=== PATIENT | female | born 1995 | race Caucasian/White ===

== ENCOUNTER → 2018-12-18 | Outpatient (CLI) | payer MEDICAID ==
--- NOTE | 2018-12-18 12:46 | Diagnostic Imaging Report ---
INDICATION: survey. TECHNIQUE: Multiple real-time grayscale images were obtained over the gravid uterus. COMPARISON: None FINDINGS: There is a single live fetus in a breech presentation. heart rate was recorded at 147 beats per minute. Placenta is posterior. Amniotic fluid volume is normal. Cervical length is 3.6 cm. survey demonstrates kidneys, bladder and stomach to be unremarkable. brain is unremarkable. There is a four chambered heart. There is a three-vessel cord with normal insertion. spine is unremarkable. Biometrical measurements are as follows: Biparietal 4.59 cm, age 20 weeks 0 days. Head circumference 17.59 cm, age 20 weeks 1 days. Abdominal circumference 14.90 cm, age 20 weeks 2 days. Femur length 3.19 cm, age 20 weeks 0 days. Sonographic estimate age: 20 weeks 1 days. Sonographic estimated date of delivery: 05/06/2019. Estimated Weight: 329 gm (+/- 48 gm). LMP percentile: 40%. heart rate: 147 beats per minute. number: 1 of 1. IMPRESSION: Single live IUP 20 weeks one day gestational age. The estimated date of confinement sonographically is 05/06/2019. Dictated by: Dictated on workstation # [id number]
== END ==
LOC: RAD 11:24
PROVIDERS: ATTEND Obstetrics & Gynecology
DX: Z36.89 Encounter for other specified antenatal screening (principal); Z3A.20 20 weeks gestation of pregnancy
CPT/HCPCS: 76805

== ENCOUNTER 2019-04-05 22:18 | Outpatient (CLI) | payer MEDICAID ==
[~2019-04-05] VITALS: Ht 157.5 cm; Wt 81.6 kg
[~2019-04-05 22:18] MED LIST: ACET-789 PO; CEPH-507 PO; PREN1TAB19 PO
--- NOTE | 2019-04-05 22:25 | NUR ---
GABRIELLA VILLAVICENCIO presented to unit via AMBULATION from HOME/ED, accompanied by SO, with c/o CONTRACTIONS. GABRIELLA VILLAVICENCIO weighed, gowned, voided, and to bed. EFHM and TOCO applied, VS taken. GABRIELLA VILLAVICENCIO oriented to bed controls, call light, TV, heat, and A/C controls.
[2019-04-05 22:38] VITALS: BP 123/68
[2019-04-05 22:48] LABS: BILIRUBIN,URINE NEGATIVE (NEGATIVE); CLARITY,URINE CLEAR; COLOR,URINE YELLOW; GLUCOSE, URINE (UA) 1+ (NEGATIVE); KETONES,URINE NEGATIVE (NEGATIVE); LEUKOCYTE ESTERASE ,URINE 1+ (NEGATIVE); NITRITE,URINE NEGATIVE (NEGATIVE); PH,URINE 6 (5-9); PROTEIN,URINE NEGATIVE (NEGATIVE); UROBILINOGEN,URINE NORMAL (NORMAL)
[2019-04-05 22:57] LABS: BACTERIA,URINE TRACE /HPF; RBC,URINE 0-2 /HPF
[2019-04-05] MEDS ORDERED: CEPH-507 PO (23:12)
[2019-04-05] MEDS ORDERED: CEPHALEXIN 250 MG (KEFLEX) CAP PO ONE (23:15)
--- NOTE | 2019-04-05 23:19 | NUR ---
Keflex 500 mg PO given w/ice water. D/C instructions given & explained, pt. verbalized understanding & signed, copy of D/C instructions to pt. Rx called into [facility] per pt's request. 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
--- NOTE | 2019-04-06 10:43 | Physician Query-Final Dx ---
WILBER YEN 04/06/19 1043: Clinic Account Progress/Dx Physician Query: Please give diagnosis Please include weeks gestation Date of Service Apr 05, 2019 at 22:18 LIAN FELIZ DO 04/07/19 0751: Clinic Account Progress/Dx DIAGNOSIS: Diagnosis 32 week IUP Uterine cramps UTI WILBER YEN Apr 06, 2019 10:43 LIAN FELIZ DO Apr 07, 2019 07:51
== END 2019-04-05 23:19 | disposition home or self-care (01) ==
LOC: LDRP 22:18 → WSo 22:18
PROVIDERS: ATTEND Obstetrics & Gynecology
DX: O23.43 Unspecified infection of urinary tract in pregnancy, third trimester (principal); Z3A.32 32 weeks gestation of pregnancy
CPT/HCPCS: 81000; 87088; 99213

== ENCOUNTER 2019-04-24 14:49 | Outpatient (CLI) | payer MEDICAID ==
[~2019-04-24] VITALS: Ht 157.5 cm; Wt 85.4 kg
--- NOTE | 2019-04-24 14:45 | NUR ---
GABRIELLA VILLAVICENCIO presented to unit via ambulation from home, accompanied by S,o,, with c/o losing mucus plug. GABRIELLA VILLAVICENCIO weighed, gowned, voided, and to bed. EFHM and TOCO applied, VS taken. GABRIELLA VILLAVICENCIO oriented to bed controls, call light, TV, heat, and A/C controls.
[2019-04-24 15:00] VITALS: BP 126/78
--- NOTE | 2019-04-24 15:41 | NUR ---
Dr. Barber called and notified of pt arrival. Pt is pt of Dr. Arce, , due 05/06 (38.2 weeks), presenting with c/o losing mucous plug. notified of ctx pattern, FHR status, SVE, urine dipstick, nitrazine. Orders for discharge rec'd.
--- NOTE | 2019-04-24 15:55 | NUR ---
Discharge instructions explained to pt with copy provided to pt. Pt verbalizes understanding of teaching, denies needs or concerns. Signs to verify understanding. Pt ambulates off unit accompanied by S.O. to private vehicle along with all personal belongings. No s//s of distress noted.
--- NOTE | 2019-04-25 08:00 | Physician Query-Final Dx ---
WILBER YEN 04/25/19 0800: Clinic Account Progress/Dx Physician Query: Please give diagnosis Please include # weeks gestation Date of Service Apr 24, 2019 at 14:49 LIAN FELIZ DO 04/27/19 0800: Clinic Account Progress/Dx DIAGNOSIS: Diagnosis 37 week iup irregular contractions WILBER YEN Apr 25, 2019 08:00 LIAN FELIZ DO Apr 27, 2019 08:00
== END 2019-04-24 15:55 | disposition home or self-care (01) ==
LOC: WSo 14:49 → LDRP 14:50 → WSo 15:55
PROVIDERS: ATTEND Obstetrics & Gynecology
DX: O26.893 Other specified pregnancy related conditions, third trimester (principal); Z3A.38 38 weeks gestation of pregnancy
CPT/HCPCS: 99214

== ENCOUNTER 2019-04-29 19:47 | Inpatient (IN) | payer MEDICAID ==
[2019-04-29] VITALS (8 sets, daily range): BP systolic 111–129; BP diastolic 66–79
[~2019-04-29] VITALS: Ht 160 cm; Wt 86.0 kg
--- NOTE | 2019-04-29 19:43 | NUR ---
GABRIELLA VILLAVICENCIO presented to unit via ambulation from home, accompanied by s.o. and mother for induction of labor. GABRIELLA VILLAVICENCIO weighed, gowned, voided, and to bed. EFHM and TOCO applied, VS taken. GABRIELLA VILLAVICENCIO oriented to bed controls, call light, TV, heat, and A/C controls.
[2019-04-29] MEDS ORDERED: D5 LR IV SOLUTION 1,000 ML IV ONE (19:59)
[2019-04-29] MEDS ORDERED: ceFAZolin 2 GM IV Premixed 50 ML IV SCH (20:28)
[2019-04-29] MEDS ORDERED: MINERAL OIL CONCENTRATE 99.9% 15 ML UDC TOP PRN (20:30)
[2019-04-29 20:45] LABS: BASOPHILS % (AUTO) 0 % (0-10); EOSINOPHILS # (AUTO) 0.2 10^3/uL (0.0-0.3); EOSINOPHILS % (AUTO) 1 % (0-10); HEMATOCRIT 38 % (35-52); HEMOGLOBIN 12.3 G/DL (11.5-16.0); LYMPHOCYTES # (AUTO) 3.1 X 10^3 (1.0-4.0); LYMPHOCYTES % (AUTO) 19 % (12-44); MEAN CORPUSCULAR HEMOGLOBIN 27 PG (25-34); MEAN CORPUSCULAR HGB CONC 33 G/DL (32-36); MEAN CORPUSCULAR VOLUME 82 FL (80-99); MEAN PLATELET VOLUME 8.8 FL (7.4-10.4); MONOCYTES # (AUTO) 1.3 X 10^3 (0.0-1.0); MONOCYTES % (AUTO) 8 % (0-12); NEUTROPHILS # (AUTO) 11.7 X 10^3 (1.8-7.8); NEUTROPHILS % (AUTO) 72 % (42-75); PLATELET COUNT 346 10^3/uL (130-400); RED CELL DISTRIBUTION WIDTH 16.2 % (10.0-14.5); WHITE BLOOD COUNT 16.3 10^3/uL (4.3-11.0)
[2019-04-29] MEDS ORDERED: MISOPROSTOL 100 MCG (CYTOTEC) TAB ONE (20:52)
[2019-04-29] MEDS ORDERED: ceFAZolin 2 GM/50 ML NS 50 ML ONE (20:52)
[2019-04-29] MEDS: D5 LR IV SOLUTION 1,000 ML IV SCH (20:55)
[2019-04-29] MEDS ORDERED: MISOPROSTOL 100 MCG (CYTOTEC) TAB PO ONE (21:00)
[2019-04-29 21:11] LABS: BILIRUBIN,URINE NEGATIVE (NEGATIVE); CLARITY,URINE CLEAR; COLOR,URINE YELLOW; GLUCOSE, URINE (UA) NEGATIVE (NEGATIVE); KETONES,URINE NEGATIVE (NEGATIVE); LEUKOCYTE ESTERASE ,URINE NEGATIVE (NEGATIVE); NITRITE,URINE NEGATIVE (NEGATIVE); PH,URINE 6.5 (5-9); PROTEIN,URINE NEGATIVE (NEGATIVE); UROBILINOGEN,URINE NORMAL (NORMAL)
[2019-04-29 21:28] LABS: BACTERIA,URINE FEW /HPF; RBC,URINE RARE /HPF; SQUAMOUS EPITHELIAL CELL,UR 0-2 /HPF
[2019-04-30] VITALS (75 sets, daily range): BP systolic 108–153; BP diastolic 57–93
[2019-04-30] MEDS: MISOPROSTOL 100 MCG (CYTOTEC) TAB PO SCH ×3 (00:58→09:13)
[2019-04-30] MEDS: D5 LR IV SOLUTION 1,000 ML IV SCH ×3 (03:32→18:41)
[2019-04-30] MEDS: ceFAZolin INJECTION 1,000 MG in WATER (STERILE) FOR INJECTION 10 ML IV SCH ×2 (05:11→13:17)
[2019-04-30] MEDS ORDERED: morphine INJ 10 MG/ML 1ML (SYR OR VIAL) ONE (05:14)
[2019-04-30] MEDS ORDERED: morphine INJ 10 MG/ML 1ML (SYR OR VIAL) IVP ONE (05:15)
[2019-04-30] MEDS: CATHETER FLUSH 10 ML SYR IV SCH ×3 (08:23→14:00)
[2019-04-30] MEDS ORDERED: SUFENTA 0.6MCG/ML BUPIVA 0.125 100 ML ONE (10:01)
[2019-04-30] MEDS ORDERED: BUPIVACAINE 0.25% 30 ML (SENSORCAINE) VIAL ONE (10:21)
[2019-04-30] MEDS ORDERED: fentaNYL INJECTION 100 MCG/2 ML AMP ONE (10:22)
[2019-04-30] MEDS: EPIDURAL (SUFENTA 0.6MCG/ML BUPIVA 0.125%) 100 ML BAG EPI PRN ×2 (10:42→18:43)
[2019-04-30] MEDS ORDERED: LACTATED RINGERS 1,000 ML IV SCH (10:58)
[2019-04-30] MEDS ORDERED: ONDANSETRON 4 MG/2 ML (SDV) Z0FRAN IV PRN (11:00)
[2019-04-30] MEDS ORDERED: diphenhydrAMINE 50 MG/ML INJ (BENADRYL) IV PRN (11:00)
[2019-04-30] MEDS ORDERED: NALOXONE 0.4 MG/ML 1 ML (NARCAN) VIAL IV PRN ×2 (11:00)
[2019-04-30] MEDS ORDERED: METOCLOPRAMIDE INJ 10 MG/2 ML (REGLAN) IV PRN (11:00)
[2019-04-30] MEDS ORDERED: OXYTOCIN/NORMAL SALINE 500 ML IV SCH ×2 (12:54→21:48)
[2019-04-30] MEDS ORDERED: LACTATED RINGERS 500 ML IV ONE (16:15)
[2019-04-30] MEDS ORDERED: LIDOCAINE/EPI 2% 1:200,00 (XYLOCAINE) 10 ML VIAL ONE (19:30)
--- NOTE | 2019-04-30 21:53 | OB Labor & Delivery Record ---
Vag Delivery Note Vag Delivery Note Date of Delivery: 04/30/19 Preoperative Diagnosis: Sherice Burnett is a 23 /Para 1/0 ,Gestational Age 39 1/7 weeks, social induction, GBS + Postoperative Diagnosis: Same Surgeon: VERONICA DELEON Wagon Drill Operator: Nina Candelario, MS III Anesthesia: epidural Delivery Type: vaginal Findings: Viable female infant, apgars [], weight 7#7ounces Lacerations: right vaginal wall laceration Intact placenta with 3 vessel cord. No nuchal cord, body cord or shoulder dystocia Estimated Blood Loss: 400 ml Complications: None Condition: Stable Description of Procedure: The patient is a 23 year old female who presented social induction. She was admitted and informed consent was obtained. Her labor course was remarkable for Misoprostel oral, Ancef for GBS prophylaxis, AROM and augmentation. She progressed to complete dilatation and began to push. She was then set up for delivery. The infant's head was delivered atraumatically in the DELTA position. The shoulders and remainder of the 's body were then delivered without difficulty. Upon delivery, the head was held below the level of the perineum and the mouth and nares were bulb suctioned. The cord was doubly clamped and cut and the was handed off to the pediatric staff. An intact placenta with 3-vessel cord delivered via Juanita and there was found to be minimal bleeding.~ Vigorous fundal massage was performed and the fundus was found to be firm. IV oxytocin was given. Examination of the vagina and perineum revealed a right vaginal wall laceration repaired in the usual fashion with 3-0 vicryl suture. Following the repair, sponge, instrument and needle counts were correct. Mom and baby were both in stable condition in the labor suite. Vitals - Labs Vital Signs - I&O Vital Signs Date Time Temp Pulse Resp B/P (MAP) Pulse Ox O2 Delivery O2 Flow Rate FiO2 04/30/19 20:00 95 16 123/77 (92) Room Air 04/30/19 19:45 100 16 137/71 (93) Room Air 04/30/19 19:30 95 16 131/89 (103) Room Air 04/30/19 19:15 36.6 95 16 128/90 (103) 95 Room Air 04/30/19 19:00 94 16 130/75 (93) Room Air 04/30/19 18:45 93 16 135/73 (93) Room Air 04/30/19 18:30 90 16 137/70 (92) Room Air 04/30/19 18:15 36.7 91 16 137/67 (90) 99 Room Air 04/30/19 18:00 93 16 134/74 (94) Room Air 04/30/19 17:45 103 16 153/70 (97) Room Air 04/30/19 17:30 92 16 130/80 (97) Room Air 04/30/19 17:15 87 16 128/74 (92) Room Air 04/30/19 17:00 36.6 88 16 125/63 (83) Room Air 04/30/19 16:45 89 16 130/66 (87) Room Air 04/30/19 16:30 88 16 129/70 (89) Room Air 04/30/19 16:15 88 16 128/65 (86) Room Air 04/30/19 16:00 36.5 88 16 123/73 (90) Room Air 04/30/19 15:45 84 16 117/69 (85) Non Rebreather 15.00 04/30/19 15:30 80 16 124/67 (86) Non Rebreather 15.00 04/30/19 15:15 84 16 121/87 (98) Room Air 04/30/19 15:00 71 16 121/70 (87) Room Air 04/30/19 14:45 77 16 118/70 (86) Room Air 04/30/19 14:30 72 16 114/65 (81) Room Air 04/30/19 14:15 83 16 111/61 (78) Room Air 04/30/19 14:00 36.3 76 16 112/63 (79) Room Air 04/30/19 13:45 79 16 113/69 (84) Room Air 04/30/19 13:30 81 16 113/76 (88) Room Air 04/30/19 13:15 83 16 124/74 (91) Room Air 04/30/19 13:00 81 16 121/69 (86) Room Air 04/30/19 12:55 80 18 99 Room Air 04/30/19 12:45 Room Air 04/30/19 12:37 91 18 116/61 (79) 98 Room Air 04/30/19 12:30 Room Air 04/30/19 12:20 76 18 115/63 (80) 99 Room Air 04/30/19 12:15 18 99 Room Air 04/30/19 12:05 80 18 118/73 (88) 98 Room Air 04/30/19 12:00 36.5 93 18 111/68 (82) 99 Room Air 04/30/19 11:36 90 18 121/77 (92) 98 Room Air 04/30/19 11:25 87 18 120/67 (84) 98 Room Air 04/30/19 11:20 87 18 120/67 (84) 98 Room Air 04/30/19 11:15 88 18 119/63 (81) 99 Room Air 04/30/19 11:10 89 18 123/67 (85) 99 Room Air 04/30/19 11:05 90 18 122/70 (87) 97 Room Air 04/30/19 11:00 96 18 122/70 (87) 98 Room Air 04/30/19 10:55 90 18 122/71 (88) 97 Room Air 04/30/19 10:50 95 18 119/71 (87) 98 Room Air 04/30/19 10:45 97 20 129/77 (94) 97 Room Air 04/30/19 10:40 99 20 134/80 (98) 98 Room Air 04/30/19 10:31 94 18 124/79 (94) 100 Room Air 04/30/19 09:36 36.6 04/30/19 09:21 86 18 121/67 (85) Room Air 04/30/19 08:21 92 18 132/87 (102) Room Air 04/30/19 07:21 36.2 80 18 119/77 (91) 100 Room Air 04/30/19 06:30 85 18 119/76 (90) Room Air 04/30/19 06:00 83 18 122/77 (92) Room Air 04/30/19 05:30 36.6 85 18 124/80 (95) Room Air 04/30/19 04:30 89 18 110/65 (80) Room Air 04/30/19 04:00 83 18 121/74 (90) Room Air 04/30/19 03:30 87 18 126/75 (92) Room Air 04/30/19 03:00 82 18 116/74 (88) Room Air 04/30/19 02:30 87 18 115/69 (84) Room Air 04/30/19 02:00 90 18 108/68 (81) Room Air 04/30/19 01:30 36.5 94 18 119/73 (88) Room Air 04/30/19 01:00 86 18 120/68 (85) Room Air 04/30/19 00:30 94 18 124/71 (88) Room Air 04/30/19 00:00 100 18 118/71 (87) Room Air 04/29/19 23:30 89 18 122/76 (91) Room Air 04/29/19 23:00 94 18 119/66 (83) Room Air 04/29/19 22:30 90 18 111/69 (83) Room Air 04/29/19 22:00 86 18 114/72 (86) Room Air I & O 04/30/19 07:00 Intake Total 10 ml Balance 10 ml VERONICA DELEON DO Apr 30, 2019 21:53
[2019-04-30] MEDS ORDERED: WITCH HAZEL(TUCKS) 40 EA JAR TOP PRN (22:00)
[2019-04-30] MEDS ORDERED: MEASLES,MUMPS,RUBELLA 1 EA INJ SQ ONE (22:00)
[2019-04-30] MEDS ORDERED: CATHETER FLUSH 10 ML SYR IV SCH (22:00)
[2019-04-30] MEDS ORDERED: TETANUS,DIPTH,PERTUSS P/F (BOOSTRIX) 0.5 ML VIAL IM ONE (22:00)
[2019-04-30] MEDS ORDERED: BENZOCAINE/MENTHOL (DERMOPLAST) 56 ML CAN TP PRN (22:00)
[2019-05-01] VITALS: BP 117/66
[2019-05-01] MEDS: IBUPROFEN 600 MG (MOTRIN) TAB PO SCH ×4 (00:15→22:47)
[2019-05-01] MEDS: ACETAMINOPHEN 500 MG TAB (TYLENOL) PO SCH ×3 (00:15→16:31)
--- NOTE | 2019-05-01 00:30 | NUR ---
ff 1 below umbilicus. light rubra noted. along with labia major swelling pericare completed. gown changed. pt assisted to w'c and taken down to 309. pt orientated to room. denies urge to void at this time. pt assisted into bed. plan of care discussed. pt denies any needs at this time. will continue to monitor.
--- NOTE | 2019-05-01 02:30 | NUR ---
Pt assisted to the bathroom. positive void. pericare completed. pad changed. rubra moderate. no clots noted. pt assisted back to bed. pt denies any needs at this time. will continue to monitor.
[2019-05-01 04:15] VITALS: BP 122/61
[2019-05-01 05:11] LABS: BASOPHILS % (AUTO) 0 % (0-10); EOSINOPHILS # (AUTO) 0.2 10^3/uL (0.0-0.3); EOSINOPHILS % (AUTO) 1 % (0-10); HEMATOCRIT 33 % (35-52); HEMOGLOBIN 10.7 G/DL (11.5-16.0); LYMPHOCYTES # (AUTO) 2.5 X 10^3 (1.0-4.0); LYMPHOCYTES % (AUTO) 11 % (12-44); MEAN CORPUSCULAR HEMOGLOBIN 27 PG (25-34); MEAN CORPUSCULAR HGB CONC 32 G/DL (32-36); MEAN CORPUSCULAR VOLUME 83 FL (80-99); MEAN PLATELET VOLUME 8.5 FL (7.4-10.4); MONOCYTES # (AUTO) 1.8 X 10^3 (0.0-1.0); MONOCYTES % (AUTO) 8 % (0-12); NEUTROPHILS # (AUTO) 18.1 X 10^3 (1.8-7.8); NEUTROPHILS % (AUTO) 80 % (42-75); PLATELET COUNT 287 10^3/uL (130-400); RED CELL DISTRIBUTION WIDTH 16.1 % (10.0-14.5); WHITE BLOOD COUNT 22.5 10^3/uL (4.3-11.0)
[2019-05-01 06:33] LABS: LYMPHOCYTES % (MANUAL) 8 %; MONOCYTES % (MANUAL) 6 %; NEUTROPHILS % (MANUAL) 86 %
[2019-05-01 08:33] VITALS: BP 120/79
[2019-05-01] MEDS: DOCUSATE SODIUM 100 MG (COLACE) CAP PO SCH ×2 (08:34→22:47)
[2019-05-01] MEDS: PRENATAL VITAMIN 1 EA TAB PO SCH (08:34)
[2019-05-01] MEDS: FERROUS SULF 325 MG (IRON) TAB PO SCH (08:35)
--- NOTE | 2019-05-01 09:53 | Postpartum Progress Note ---
Note Note Day # 1 s/p Subjective: Patient is without complaints. Ambulating, voiding. Tolerating a regular diet w ithout nausea or vomiting. Normal lochia. Pain is well controlled with oral pain medications. breast feeding. Objective: 04/30/19 04/30/19 04/30/19 04/30/19 22:00 22:15 22:30 23:00 Temp 36.7 36.7 Pulse 98 84 84 102 Resp 16 16 16 16 B/P (MAP) 122/80 (94) 123/74 (90) 118/81 (93) 117/64 (81) O2 Delivery Room Air Room Air Room Air Room Air 04/30/19 04/30/19 04/30/19 05/01/19 23:15 23:30 23:45 00:00 Temp 36.6 Pulse 110 100 105 100 Resp 16 16 16 16 B/P (MAP) 115/57 (76) 138/78 (98) 131/65 (87) 117/66 (83) O2 Delivery Room Air Room Air Room Air Room Air 05/01/19 05/01/19 04:15 08:33 Temp 36.5 36.6 Pulse 98 89 Resp 16 16 B/P (MAP) 122/61 (81) 120/79 (93) Pulse Ox 97 O2 Delivery Room Air Room Air 05/01/19 00:00 Intake Total 1010 ml Output Total 1200 ml Balance -190 ml Laboratory Tests Test 05/01/19 05:02 Range/Units White Blood Count 22.5 H 4.3-11.0 10^3/uL Red Blood Count 3.98 L 4.35-5.85 10^6/uL Hemoglobin 10.7 L 11.5-16.0 G/DL Hematocrit 33 L 35-52 % Mean Corpuscular Volume 83 80-99 FL Mean Corpuscular Hemoglobin 27 25-34 PG Mean Corpuscular Hemoglobin Concent 32 32-36 G/DL Red Cell Distribution Width 16.1 H 10.0-14.5 % Platelet Count 287 130-400 10^3/uL Mean Platelet Volume 8.5 7.4-10.4 FL Neutrophils (%) (Auto) 80 H 42-75 % Lymphocytes (%) (Auto) 11 L 12-44 % Monocytes (%) (Auto) 8 0-12 % Eosinophils (%) (Auto) 1 0-10 % Basophils (%) (Auto) 0 0-10 % Neutrophils # (Auto) 18.1 H 1.8-7.8 X 10^3 Lymphocytes # (Auto) 2.5 1.0-4.0 X 10^3 Monocytes # (Auto) 1.8 H 0.0-1.0 X 10^3 Eosinophils # (Auto) 0.2 0.0-0.3 10^3/uL Basophils # (Auto) 0.0 0.0-0.1 10^3/uL Neutrophils % (Manual) 86 % Lymphocytes % (Manual) 8 % Monocytes % (Manual) 6 % Physical Exam: General - Alert and oriented, no apparent distress Abdomen - Soft, appropriately tender to palpation, non-distended, fundus firm at umbilicus Extremities - no edema, negative Андрей's bilaterally Assessment: 1. post- day # 1, status post spontaneous vaginal delivery. Recovering well, hemodynamically stable Plan: Routine care. Encourage breast feeding. Encourage ambulation. Ferrous sulfate supplementation. Plan for discharge tomorrow Vitals - Labs Vital Signs - I&O Vital Signs Date Time Temp Pulse Resp B/P (MAP) Pulse Ox O2 Delivery O2 Flow Rate FiO2 05/01/19 08:33 36.6 89 16 120/79 (93) 97 Room Air 05/01/19 04:15 36.5 98 16 122/61 (81) Room Air 05/01/19 00:00 36.6 100 16 117/66 (83) Room Air 04/30/19 23:45 105 16 131/65 (87) Room Air 04/30/19 23:30 100 16 138/78 (98) Room Air 04/30/19 23:15 110 16 115/57 (76) Room Air 04/30/19 23:00 36.7 102 16 117/64 (81) Room Air 04/30/19 22:30 36.7 84 16 118/81 (93) Room Air 04/30/19 22:15 84 16 123/74 (90) Room Air 04/30/19 22:00 98 16 122/80 (94) Room Air 04/30/19 21:45 101 16 116/82 (93) Room Air 04/30/19 21:30 96 16 133/79 (97) Room Air 04/30/19 21:15 104 16 129/80 (96) Room Air 04/30/19 21:00 98 16 134/84 (101) Room Air 04/30/19 20:45 100 16 141/78 (99) Room Air 04/30/19 20:30 105 16 131/84 (100) Room Air 04/30/19 20:15 105 16 139/93 (108) Room Air 04/30/19 20:00 95 16 123/77 (92) Room Air 04/30/19 19:45 100 16 137/71 (93) Room Air 04/30/19 19:30 95 16 131/89 (103) Room Air 04/30/19 19:15 36.6 95 16 128/90 (103) 95 Room Air 04/30/19 19:00 94 16 130/75 (93) Room Air 04/30/19 18:45 93 16 135/73 (93) Room Air 04/30/19 18:30 90 16 137/70 (92) Room Air 04/30/19 18:15 36.7 91 16 137/67 (90) 99 Room Air 04/30/19 18:00 93 16 134/74 (94) Room Air 04/30/19 17:45 103 16 153/70 (97) Room Air 04/30/19 17:30 92 16 130/80 (97) Room Air 04/30/19 17:15 87 16 128/74 (92) Room Air 04/30/19 17:00 36.6 88 16 125/63 (83) Room Air 04/30/19 16:45 89 16 130/66 (87) Room Air 04/30/19 16:30 88 16 129/70 (89) Room Air 04/30/19 16:15 88 16 128/65 (86) Room Air 04/30/19 16:00 36.5 88 16 123/73 (90) Room Air 04/30/19 15:45 84 16 117/69 (85) Non Rebreather 15.00 04/30/19 15:30 80 16 124/67 (86) Non Rebreather 15.00 04/30/19 15:15 84 16 121/87 (98) Room Air 04/30/19 15:00 71 16 121/70 (87) Room Air 04/30/19 14:45 77 16 118/70 (86) Room Air 04/30/19 14:30 72 16 114/65 (81) Room Air 04/30/19 14:15 83 16 111/61 (78) Room Air 04/30/19 14:00 36.3 76 16 112/63 (79) Room Air 04/30/19 13:45 79 16 113/69 (84) Room Air 04/30/19 13:30 81 16 113/76 (88) Room Air 04/30/19 13:15 83 16 124/74 (91) Room Air 04/30/19 13:00 81 16 121/69 (86) Room Air 04/30/19 12:55 80 18 99 Room Air 04/30/19 12:45 Room Air 04/30/19 12:37 91 18 116/61 (79) 98 Room Air 04/30/19 12:30 Room Air 04/30/19 12:20 76 18 115/63 (80) 99 Room Air 04/30/19 12:15 18 99 Room Air 04/30/19 12:05 80 18 118/73 (88) 98 Room Air 04/30/19 12:00 36.5 93 18 111/68 (82) 99 Room Air 04/30/19 11:36 90 18 121/77 (92) 98 Room Air 04/30/19 11:25 87 18 120/67 (84) 98 Room Air 04/30/19 11:20 87 18 120/67 (84) 98 Room Air 04/30/19 11:15 88 18 119/63 (81) 99 Room Air 04/30/19 11:10 89 18 123/67 (85) 99 Room Air 04/30/19 11:05 90 18 122/70 (87) 97 Room Air 04/30/19 11:00 96 18 122/70 (87) 98 Room Air 04/30/19 10:55 90 18 122/71 (88) 97 Room Air 04/30/19 10:50 95 18 119/71 (87) 98 Room Air 04/30/19 10:45 97 20 129/77 (94) 97 Room Air 04/30/19 10:40 99 20 134/80 (98) 98 Room Air 04/30/19 10:31 94 18 124/79 (94) 100 Room Air I & O 05/01/19 07:00 Intake Total 3010 ml Output Total 1200 ml Balance 1810 ml Labs Laboratory Tests 05/01/19 05:02: White Blood Count 22.5H, Red Blood Count 3.98L, Hemoglobin 10.7L, Hematocrit 33L , Mean Corpuscular Volume 83, Mean Corpuscular Hemoglobin 27, Mean Corpuscular Hemoglobin Concent 32, Red Cell Distribution Width 16.1H, Platelet Count 287, Mean Platelet Volume 8.5, Neutrophils (%) (Auto) 80H, Lymphocytes (%) (Auto) 11L , Monocytes (%) (Auto) 8, Eosinophils (%) (Auto) 1, Basophils (%) (Auto) 0, Neutrophils # (Auto) 18.1H, Lymphocytes # (Auto) 2.5, Monocytes # (Auto) 1.8H, Eosinophils # (Auto) 0.2, Basophils # (Auto) 0.0, Neutrophils % (Manual) 86, Lymphocytes % (Manual) 8, Monocytes % (Manual) 6 VERONICA DELEON DO May 01, 2019 09:53
[2019-05-01 12:48] VITALS: BP 117/79
--- NOTE | 2019-05-01 15:30 | Anesthesia-Regional Post-Op ---
Regional Patient Condition Mental Status: Alert, Oriented x3 Circulation: Same as Pre-Op Headache: Absent Sensation: Full Recovery Motor Block: Absent Post Op Complications Complications None Follow Up Care/Instructions Patient Instructions None needed. Anesthesia/Patient Condition Patient is doing well, no complaints, stable vital signs, no apparent adverse anesthesia problems. NIKI LAYTON DO May 01, 2019 15:30
[2019-05-01 16:29] VITALS: BP 115/77
[2019-05-01 20:00] VITALS: BP 117/73
--- NOTE | 2019-05-01 22:30 | NUR ---
VS and assessments done. Pt requesting some MOM to help with BM. Dr Arce notified. Orders received. No other needs at this time.
[2019-05-01] MEDS: CATHETER FLUSH 10 ML SYR IV SCH (22:43)
[2019-05-01] MEDS ORDERED: MILK OF MAGNESIA 400 MG/5 ML 30 ML UDC PO PRN (22:45)
[2019-05-01] MEDS ORDERED: MILK OF MAGNESIA 400 MG/5 ML 30 ML UDC ONE (23:13)
--- NOTE | 2019-05-02 01:12 | NUR ---
Pt sleeping soundly. Baby in bassinet next to bed sleeping
[2019-05-02] MEDS: ACETAMINOPHEN 500 MG TAB (TYLENOL) PO SCH (04:39)
[2019-05-02 04:48] VITALS: BP 110/68
[2019-05-02] MEDS: IBUPROFEN 600 MG (MOTRIN) TAB PO SCH (05:37)
--- NOTE | 2019-05-02 08:23 | Postpartum Progress Note ---
Note Note Day # 2 s/p Subjective: Patient is without complaints per RN. Patient was sound asleep when I rounded. Ambulating, voiding. Tolerating a regular diet without nausea or vomiting. Normal lochia. Pain is well controlled with oral pain medications. breast feeding. Objective: 05/02/19 04:48 Temp 36.1 Pulse 90 Resp 18 B/P (MAP) 110/68 (82) Pulse Ox 97 Laboratory Tests Test 04/29/19 19:55 04/29/19 20:05 05/01/19 05:02 Range/Units Urine Color YELLOW Urine Clarity CLEAR Urine pH 6.5 5-9 Urine Specific [place] 1.010 L 1.016-1.022 Urine Protein NEGATIVE NEGATIVE Urine Glucose (UA) NEGATIVE NEGATIVE Urine Ketones NEGATIVE NEGATIVE Urine Nitrite NEGATIVE NEGATIVE Urine Bilirubin NEGATIVE NEGATIVE Urine Urobilinogen NORMAL NORMAL MG/DL Urine Leukocyte Esterase NEGATIVE NEGATIVE Urine RBC (Auto) 1+ H NEGATIVE Urine RBC RARE /HPF Urine WBC NONE /HPF Urine Squamous Epithelial Cells 0-2 /HPF Urine Crystals NONE /LPF Urine Bacteria FEW H /HPF Urine Casts NONE /LPF Urine Mucus NEGATIVE /LPF Urine Culture Indicated NO White Blood Count 16.3 H 22.5 H 4.3-11.0 10^3/uL Red Blood Count 4.58 3.98 L 4.35-5.85 10^6/uL Hemoglobin 12.3 10.7 L 11.5-16.0 G/DL Hematocrit 38 33 L 35-52 % Mean Corpuscular Volume 82 83 80-99 FL Mean Corpuscular Hemoglobin 27 27 25-34 PG Mean Corpuscular Hemoglobin Concent 33 32 32-36 G/DL Red Cell Distribution Width 16.2 H 16.1 H 10.0-14.5 % Platelet Count 346 287 130-400 10^3/uL Mean Platelet Volume 8.8 8.5 7.4-10.4 FL Neutrophils (%) (Auto) 72 80 H 42-75 % Lymphocytes (%) (Auto) 19 11 L 12-44 % Monocytes (%) (Auto) 8 8 0-12 % Eosinophils (%) (Auto) 1 1 0-10 % Basophils (%) (Auto) 0 0 0-10 % Neutrophils # (Auto) 11.7 H 18.1 H 1.8-7.8 X 10^3 Lymphocytes # (Auto) 3.1 2.5 1.0-4.0 X 10^3 Monocytes # (Auto) 1.3 H 1.8 H 0.0-1.0 X 10^3 Eosinophils # (Auto) 0.2 0.2 0.0-0.3 10^3/uL Basophils # (Auto) 0.0 0.0 0.0-0.1 10^3/uL Neutrophils % (Manual) 86 % Lymphocytes % (Manual) 8 % Monocytes % (Manual) 6 % Physical Exam: General - Alert and oriented, no apparent distress Abdomen - Soft, appropriately tender to palpation, non-distended, fundus firm at umbilicus Extremities - no edema, negative Андрей's bilaterally Assessment: 1. post- day # 2, status post spontaneous vaginal delivery. Recovering well, hemodynamically stable Plan: Routine care. Encourage breast feeding. Encourage ambulation. Ferrous sulfate supplementation. Plan for discharge today Vitals - Labs Vital Signs - I&O Vital Signs Date Time Temp Pulse Resp B/P (MAP) Pulse Ox O2 Delivery O2 Flow Rate FiO2 05/02/19 04:48 36.1 90 18 110/68 (82) 97 05/01/19 20:00 36.4 101 18 117/73 (88) 98 05/01/19 16:29 36.5 104 16 115/77 (90) 98 Room Air 05/01/19 12:48 36.8 89 16 117/79 (92) 99 Room Air 05/01/19 08:33 36.6 89 16 120/79 (93) 97 Room Air VERONICA DELEON DO May 02, 2019 08:23
[2019-05-02] MEDS ORDERED: FERR325T18 PO (08:25)
[2019-05-02] MEDS ORDERED: DOCU100C37 PO (08:25)
[2019-05-02] MEDS ORDERED: IBUP-844 PO (08:25)
[2019-05-02] MEDS ORDERED: MAGN400O7 PO (08:25)
[2019-05-02 08:35] VITALS: BP 112/73
[2019-05-02] MEDS: FERROUS SULF 325 MG (IRON) TAB PO SCH (08:42)
[2019-05-02] MEDS: DOCUSATE SODIUM 100 MG (COLACE) CAP PO SCH (08:42)
[2019-05-02] MEDS: PRENATAL VITAMIN 1 EA TAB PO SCH (08:42)
--- NOTE | 2019-05-02 08:45 | NUR ---
Baby on mom's chest quietly resting. Color pink. Addendum: 05/02/19 at 1048 by LUZ MARINA BAH RN Inquired about flu vaccine and pt states she received 2 weeks ago in office.
--- NOTE | 2019-05-02 14:15 | NUR ---
pt ambulated to private vehicle with this RN, and s/o @ side. pt secured in rear facing car seat. pt stable with no sx's of distress noted.
== END 2019-05-02 14:15 | disposition home or self-care (01) | DRG 807 ==
LOC: LDRP 19:47
PROVIDERS: ADMIT Obstetrics & Gynecology; ATTEND Obstetrics & Gynecology
PROC: 10E0XZZ Delivery of Products of Conception, External Approach (ICD-10-PCS; principal; 2019-04-30)
PROC: 0UQGXZZ Repair Vagina, External Approach (ICD-10-PCS; 2019-04-30)
PROC: 3E0DXGC Introduction of Other Therapeutic Substance into Mouth and Pharynx, External Approach (ICD-10-PCS; 2019-04-30)
DX: O99.824 Streptococcus B carrier state complicating childbirth (principal); O71.4 Obstetric high vaginal laceration alone; Z3A.39 39 weeks gestation of pregnancy; Z37.0 Single live birth
CPT/HCPCS: 36415; 81000; 85007; 85025; 85027; 86850; 86900; 86901

== ENCOUNTER 2019-11-19 06:19 | Emergency (ER) | payer SELFPAY ==
[~2019-11-19] VITALS: Ht 157 cm; Wt 81.6 kg
[~2019-11-19 06:19] MED LIST changes: +DOCU100C37 PO; +FERR325T18 PO; +IBUP-844 PO; +MAGN400O7 PO
--- OUTSIDE RECORDS SUMMARY | 2019-11-19 06:25 | XMS REPORT | Continuity of Care Document ---
Author Organization Unknown Address Unknown Phone Unavailable Allergies Active Description Code Type Severity Reaction Onset Reported/Identified Relationship to Patient Clinical Status Yes No Known Environmental Allergies [id number] Miscellaneous Allergy Moderate N/A Yes No Known Food Allergies [id number] Miscellaneous Allergy Moderate N/A Yes PCN (penicillin) [id number] Dr milagro Allergy Unknown N/A Yes No Known Drug Allergies [id number] Drug Allergy Unknown N/A 02/12/2019 Yes Pencillin Pencillin Mild rash 02/12/2019 Medications There is no data. Problems Date Dx Coded Attending Type Code Diagnosis Diagnosed By 10/15/2017 Kevyn WATERS M549 Dorsalgia, unspecified 10/15/2017 Kevyn WATERS R079 Chest pain, unspecified 10/15/2017 Kevyn WATERS R091 Pleurisy 12/19/2018 DELEON DO, VERONICA C Ot Z36.8 9 ENCOUNTER FOR OTHER SPECIFIED 12/19/2018 DELEON DO, VERONICA C Ot Z3A.2 0 20 WEEKS GESTATION OF 12/20/2018 DELEON DO, VERONICA C Ot Z36.8 9 ENCOUNTER FOR OTHER SPECIFIED 12/20/2018 DELEON DO, VERONICA C Ot Z3A.2 0 20 WEEKS GESTATION OF 12/20/2018 DELEON DO, VERONICA C Ot Z36.8 9 ENCOUNTER FOR OTHER SPECIFIED 12/20/2018 DELEON DO, VERONICA C Ot Z3A.2 0 20 WEEKS GESTATION OF 01/05/2019 DELEON DO, VERONICA C Ot Z36.8 9 ENCOUNTER FOR OTHER SPECIFIED 01/05/2019 DELEON DO, VERONICA C Ot Z3A.2 0 20 WEEKS GESTATION OF 02/13/2019 SEALS DO, JIM E Ot N13.3 0 UNSPECIFIED HYDRONEPHROSIS 02/13/2019 SEALS DO, JIM E Ot N28.8 9 OTHER SPECIFIED DISORDERS OF KIDNEY AND 02/13/2019 SEALS DO, JIM E Ot O99.8 9 OTH DISEASES AND CONDITIONS COMPL PREG/C 02/13/2019 SEALS DO, JIM E Ot Z3A.0 0 WEEKS OF GESTATION OF NOT SPEC 02/13/2019 SEALS JIM E Ot N13.3 0 UNSPECIFIED HYDRONEPHROSIS 02/13/2019 SEALS DO, JIM E Ot N28.8 9 OTHER SPECIFIED DISORDERS OF KIDNEY AND 02/13/2019 SEALS DO JIM E Ot O99.8 9 OTH DISEASES AND CONDITIONS COMPL PREG/C 02/13/2019 SEALS DO, JIM E Ot Z3A.0 0 WEEKS OF GESTATION OF NOT SPEC 04/05/2019 FENECH LIAN CONTRERAS S Ot 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 04/05/2019 ORACIOECH LIAN CONTRERAS S Ot Z3A.32 32 WEEKS GESTATION OF 04/09/2019 ORACIOECH LIAN CONTRERAS S Ot 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 04/09/2019 ORACIOECH LIAN CONTRERAS S Ot Z3A.32 32 WEEKS GESTATION OF 04/24/2019 VERONICA DELEON DO, Ot Z36.8 9 ENCOUNTER FOR OTHER SPECIFIED 04/24/2019 VERONICA DELEON DO, Ot Z3A.2 0 20 WEEKS GESTATION OF 04/24/2019 ORACIOECH LIAN CONTRERAS S Ot O26.893 OT RELATED CONDITIONS, THIRD 04/24/2019 FENECH DO LIAN S Ot Z3A.38 38 WEEKS GESTATION OF 04/26/2019 ORACIOECH LIAN CONTRERAS S Ot O62.9 ABNORMALITY OF FORCES OF LABOR, UNSPECIF 04/26/2019 ORACIOECH LIAN CONTRERAS S Ot Z3A.38 38 WEEKS GESTATION OF 04/26/2019 ORACIOECH LIAN CONTRERAS S Ot O26.893 OT RELATED CONDITIONS, THIRD 04/26/2019 FENECH DO LIAN S Ot Z3A.38 38 WEEKS GESTATION OF 05/02/2019 VERONICA DELEON DO, Ot O71.4 OBSTETRIC HIGH VAGINAL LACERATION ALONE 05/02/2019 VERONICA DELEON DO, Ot O99.8 24 STREPTOCOCCUS B CARRIER STATE COMPLICATI 05/02/2019 VERONICA DELEON DO, Ot Z37.0 SINGLE LIVE 05/02/2019 VERONICA DELEON DO, Ot Z3A.3 9 39 WEEKS GESTATION OF Procedures Code Description Performed By Per formed On [id number] RE PAIR VAGINA, EXTERNAL APPROACH 04/30/2019 [id number] DE LIVERY OF PRODUCTS OF CONCEPTION, EXTE 04/30/2019 [id number] IN TRODUCE OTH THERAP SUBST IN MOUTH/PHAR 04/30/2019 Results Test Result Range CBC WITH DIFF - 10/15/17 12:05 FINGER STICK NO CBCWITHDIFF WBC 10.9 10^3uL 4.0 - 11.0 RBC 4.91 10^6uL 4.20 - 5.40 HEMOGLOBIN 14.3 g/dL 12.0 - 16.0 HEMATOCRIT 43.8 % 35.0 - 48.0 MCV 89.2 fl 78.0 - 95.0 MCH 29.1 pg 25.0 - 35.0 MCHC 32.6 g/dL 32.0 - 36.0 RDW 12.4 % 11.5 - 14.5 PLATELETS 278 10^3uL 130 - 400 %NEUTROPHILS 66.0 % 35.0 - 75.0 %LYMPHOCYTES 25.4 % 20.0 - 53.0 %MONOCYTES 6.3 % 0.0 - 10.0 %EOSINOPHILS 1.60 % 0.00 - 8.00 %BASOPHILS 0.40 % 0.00 - 2.00 %IG 0.30 % 0.00 - 0.90 #NEUTROPHILS 7.18 1.80 - 7.50 #LYMPHOCYTES 2.76 0.70 - 3.10 #MONOCYTES 0.69 0.20 - 0.90 #EOSINOPHILS 0.17 0.00 - 0.50 #BASOPHILS 0.04 0.00 - 0.10 #IG 0.03 0.00 - 0.03 MANUAL DIFF NOT INDICATED RBC MORPH NOT INDICATED %NRBC 0.00 % 0.00 - 10.00 #NRBC 0.00 0.40 - 1.10 HCG QUAL (SERUM PREG) - 10/15/17 12:05 SERUM PREG NEGATIVE COMP METABOLIC PROFILE - 10/15/17 12:05 COMPMETABOLICPROFILE FASTING SPECIMEN? UNKNOWN FINGER STICK NO SODIUM 139 mmol/L 136 - 145 POTASSIUM 3.9 mmol/L 3.5 - 4.8 CHLORIDE 104 mmol/L 98 - 107 TOTAL CO2 27 mmol/L 21 - 32 GLUCOSE 86 mg/dL 65 - 110 BUN 13 mg/dL 7 - 18 CREATININE 0.8 mg/dL 0.6 - 1.0 TOTAL BILI 0.5 mg/dL 0.0 - 1.0 DIRECT BILI 0.1 mg/dL 0.0 - 0.3 INDIRECT BILI 0.4 mg/dl 0.1 - 1.0 ALKALINE PHOS 80 U/L 50 - 136 SGPT/ALT 22 U/L 12 - 78 SGOT/AST 12 U/L 15 - 45 TOTAL PROTEIN 7.2 g/dL 6.4 - 8.2 ALBUMIN 3.7 g/dL 3.4 - 5.6 CALCIUM 8.8 mg/dL 8.5 - 10.0 AGE 22 YEARS GFR 97 ml/min/1.7 eGFR >60 mL/min/1.7 GFR >60 mL/min/1.7 LIPASE - 10/15/17 12:05 LIPASE 101 U/L 73 - 393 D-DIMER - 10/15/17 13:08 CALLED: IMANI [id number] D-DIMER 521 ng/ml 215 - 499 Complete urinalysis with reflex to cultu re - 02/12/19 08:10 Urine color determination YELLOW NRG Urine clarity determination CLEAR NR G Urine pH measurement by test strip 6 5-9 Specific gravity of urine by test strip 1.020 1.016-1.022 Urine protein assay by test strip, semi-quantitative 2+ NEGATIVE Urine glucose detection by automated test strip NE GATIVE NEGATIVE Erythrocytes detection in urine sediment by light micr oscopy 2+ NEGATIVE Urine ketones detection by automated test strip NE GATIVE NEGATIVE Urine nitrite detection by test strip NEGATIVE NEGATIVE Urine total bilirubin detection by test strip NEGA TIVE NEGATIVE Urine urobilinogen measurement by automated test strip (mass/volume) NORMAL NORMAL Urine leukocyte esterase detection by dipstick 1+ NEGATIVE Automated urine sediment erythrocyte cou nt by microscopy (number/high power field) [HPF] NRG Automated urine sediment leukocyte count by microscopy (number/high power field) [HPF] NRG Bacteria detection in urine sediment by light microsco py FEW NRG Squamous epithelial cells detection in u rine sediment by light microscopy 5-10 NRG Crystals detection in urine sediment by light microsco py NONE NRG Casts detection in urine sediment by light microscopy NONE NRG Mucus detection in urine sediment by light microscopy NEGATIVE NRG Complete urinalysis with reflex to culture YES NRG Bacterial urine culture - 02/12/19 08:10 Bacterial urine culture 3 OR MORE NRG COLONY COUNT 80,000 CFU/ML NRG FTX;REPORTABLE GRAM POSITIVES, SUGGESTING PROBABLE NRG FREE TEXT ENTRY 2 COLLECTION CONTAMINATION WITH SK IN NRG FREE TEXT ENTRY 3 TABITHA. NO SUSCEPTIBILITY PERFOR MED. NRG Complete blood count (CBC) with automate d white blood cell (WBC) differential - 02/12/19 09:10 Blood leukocytes automated count (number/volume) 18.5 10*3/uL 4.3-11.0 Blood erythrocytes automated count (number/volume) 4.20 10*6/uL 4.35-5.85 Venous blood hemoglobin measurement (mass/volume) 11.9 g/dL 11.5-16.0 Blood hematocrit (volume fraction) 36 % 35-52 Automated erythrocyte mean corpuscular volume 87 [ foz_us] 80-99 Automated erythrocyte mean corpuscular h emoglobin (mass per erythrocyte) 28 pg 25-34 Automated erythrocyte mean corpuscular h emoglobin concentration measurement (mass/volume) 33 g/dL 32-36 Automated erythrocyte distribution width ratio 12. 7 % 10.0- 14.5 Automated blood platelet count (count/volume) 261 10*3/uL 130-400 Automated blood platelet mean volume measurement 8.6 [foz_us] 7.4-10.4 Automated blood neutrophils/100 leukocytes 88 % 42-75 Automated blood lymphocytes/100 leukocytes 5 % 12-44 Blood monocytes/100 leukocytes 7 % 0-12 Automated blood eosinophils/100 leukocytes 0 % 0-10 Automated blood basophils/100 leukocytes 0 % 0-10 Blood neutrophils automated count (number/volume) 16.2 10*3 1.8-7.8 Blood lymphocytes automated count (number/volume) 0.9 10*3 1.0-4.0 Blood monocytes automated count (number/volume) 1. 4 10*3 0.0-1.0 Automated eosinophil count 0.0 10*3/uL 0 .0-0.3 Automated blood basophil count (count/volume) 0.0 10*3/uL 0.0-0.1 Manual absolute plasma cell count - 01/29 12/17 09:10 Blood monocytes/100 leukocytes 6 % NRG Manual blood segmented neutrophils/100 leukocytes 84 % NRG Blood band neutrophils/100 leukocytes 7 % NRG Manual blood lymphocytes/100 leukocytes 3 % NRG Manual eosinophils/100 leukocytes in nose 0 % NRG Manual blood basophils/100 leukocytes 0 % NRG Blood erythrocyte morphology finding identification NORMAL NRG Complete blood count (CBC) with automate d white blood cell (WBC) differential - 02/13/19 09:10 Blood leukocytes automated count (number/volume) 12.5 10*3/uL 4.3-11.0 Blood erythrocytes automated count (number/volume) 3.20 10*6/uL 4.35-5.85 Venous blood hemoglobin measurement (mass/volume) 9.2 g/dL 11.5-16.0 Blood hematocrit (volume fraction) 28 % 35-52 Automated erythrocyte mean corpuscular volume 88 [ foz_us] 80-99 Automated erythrocyte mean corpuscular h emoglobin (mass per erythrocyte) 29 pg 25-34 Automated erythrocyte mean corpuscular h emoglobin concentration measurement (mass/volume) 33 g/dL 32-36 Automated erythrocyte distribution width ratio 13. 0 % 10.0- 14.5 Automated blood platelet count (count/volume) 238 10*3/uL 130-400 Automated blood platelet mean volume measurement 7.9 [foz_us] 7.4-10.4 Automated blood neutrophils/100 leukocytes 77 % 42-75 Automated blood lymphocytes/100 leukocytes 12 % 12-44 Blood monocytes/100 leukocytes 10 % 0-12 Automated blood eosinophils/100 leukocytes 1 % 0-10 Automated blood basophils/100 leukocytes 0 % 0-10 Blood neutrophils automated count (number/volume) 9.6 10*3 1.8-7.8 Blood lymphocytes automated count (number/volume) 1.4 10*3 1.0-4.0 Blood monocytes automated count (number/volume) 1. 3 10*3 0.0-1.0 Automated eosinophil count 0.1 10*3/uL 0 .0-0.3 Automated blood basophil count (count/volume) 0.0 10*3/uL 0.0-0.1 Comprehensive metabolic panel - 02/13/19 09:10 Serum or plasma sodium measurement (moles/volume) 138 mmol/L 135-145 Serum or plasma potassium measurement (moles/volume) 3.7 mmol/L 3.6-5.0 Serum or plasma chloride measurement (moles/volume) 109 mmol/L 98-107 Carbon dioxide 24 mmol/L 21-32 Serum or plasma anion gap determination (moles/volume) 5 mmol/L 5-14 Serum or plasma urea nitrogen measurement (mass/volume ) 9 mg/dL 7-18 Serum or plasma creatinine measurement (mass/volume) 0.79 mg/dL 0.60-1.30 Serum or plasma urea nitrogen/creatinine mass ratio 11 NRG Serum or plasma creatinine measurement w ith calculation of estimated glomerular filtration rate > NRG Serum or plasma glucose measurement (mass/volume) 109 mg/dL 70-105 Serum or plasma calcium measurement (mass/volume) 8.4 mg/dL 8.5-10.1 Serum or plasma total bilirubin measurement (mass/volu me) 0.1 mg/dL 0.1-1.0 Serum or plasma alkaline phosphatase edison surement (enzymatic activity/volume) 79 U/L 40-136 Serum or plasma aspartate aminotransfera se measurement (enzymatic activity/volume) 9 U/L 5-34 Serum or plasma alanine aminotransferase measurement (enzymatic activity/volume) 6 U/L 0-55 Serum or plasma protein measurement (mass/volume) 5.1 g/dL 6.4-8.2 Serum or plasma albumin measurement (mass/volume) 2.6 g/dL 3.2-4.5 CALCIUM CORRECTED 9.5 mg/dL 8.5-10.1 Complete urinalysis with reflex to cultu re - 04/05/19 22:25 Urine color determination YELLOW NRG Urine clarity determination CLEAR NR G Urine pH measurement by test strip 6 5-9 Specific gravity of urine by test strip 1.010 1.016-1.022 Urine protein assay by test strip, semi-quantitative NEGATIVE NEGATIVE Urine glucose detection by automated test strip 1+ NEGATIVE Erythrocytes detection in urine sediment by light micr oscopy 2+ NEGATIVE Urine ketones detection by automated test strip NE GATIVE NEGATIVE Urine nitrite detection by test strip NEGATIVE NEGATIVE Urine total bilirubin detection by test strip NEGA TIVE NEGATIVE Urine urobilinogen measurement by automated test strip (mass/volume) NORMAL NORMAL Urine leukocyte esterase detection by dipstick 1+ NEGATIVE Automated urine sediment erythrocyte cou nt by microscopy (number/high power field) [HPF] NRG Automated urine sediment leukocyte count by microscopy (number/high power field) [HPF] NRG Bacteria detection in urine sediment by light microsco py TRACE NRG Squamous epithelial cells detection in u rine sediment by light microscopy 5-10 NRG Crystals detection in urine sediment by light microsco py NONE NRG Casts detection in urine sediment by light microscopy NONE NRG Mucus detection in urine sediment by light microscopy NEGATIVE NRG Complete urinalysis with reflex to culture YES NRG Bacterial urine culture - 04/05/19 22:25 Bacterial urine culture NG NRG Complete urinalysis with reflex to cultu re - 04/29/19 19:55 Urine color determination YELLOW NRG Urine clarity determination CLEAR NR G Urine pH measurement by test strip 6.5 5-9 Specific gravity of urine by test strip 1.010 1.016-1.022 Urine protein assay by test strip, semi-quantitative NEGATIVE NEGATIVE Urine glucose detection by automated test strip NE GATIVE NEGATIVE Erythrocytes detection in urine sediment by light micr oscopy 1+ NEGATIVE Urine ketones detection by automated test strip NE GATIVE NEGATIVE Urine nitrite detection by test strip NEGATIVE NEGATIVE Urine total bilirubin detection by test strip NEGA TIVE NEGATIVE Urine urobilinogen measurement by automated test strip (mass/volume) NORMAL NORMAL Urine leukocyte esterase detection by dipstick NEG ATIVE NEGATIVE Automated urine sediment erythrocyte cou nt by microscopy (number/high power field) RARE NRG Automated urine sediment leukocyte count by microscopy (number/high power field) NONE NRG Bacteria detection in urine sediment by light microsco py FEW NRG Squamous epithelial cells detection in u rine sediment by light microscopy 0-2 NRG Crystals detection in urine sediment by light microsco py NONE NRG Casts detection in urine sediment by light microscopy NONE NRG Mucus detection in urine sediment by light microscopy NEGATIVE NRG Complete urinalysis with reflex to culture NO NRG Complete blood count (CBC) with automate d white blood cell (WBC) differential - 04/29/19 20:05 Blood leukocytes automated count (number/volume) 16.3 10*3/uL 4.3-11.0 Blood erythrocytes automated count (number/volume) 4.58 10*6/uL 4.35-5.85 Venous blood hemoglobin measurement (mass/volume) 12.3 g/dL 11.5-16.0 Blood hematocrit (volume fraction) 38 % 35-52 Automated erythrocyte mean corpuscular volume 82 [ foz_us] 80-99 Automated erythrocyte mean corpuscular h emoglobin (mass per erythrocyte) 27 pg 25-34 Automated erythrocyte mean corpuscular h emoglobin concentration measurement (mass/volume) 33 g/dL 32-36 Automated erythrocyte distribution width ratio 16. 2 % 10.0- 14.5 Automated blood platelet count (count/volume) 346 10*3/uL 130-400 Automated blood platelet mean volume measurement 8.8 [foz_us] 7.4-10.4 Automated blood neutrophils/100 leukocytes 72 % 42-75 Automated blood lymphocytes/100 leukocytes 19 % 12-44 Blood monocytes/100 leukocytes 8 % 0-12 Automated blood eosinophils/100 leukocytes 1 % 0-10 Automated blood basophils/100 leukocytes 0 % 0-10 Blood neutrophils automated count (number/volume) 11.7 10*3 1.8-7.8 Blood lymphocytes automated count (number/volume) 3.1 10*3 1.0-4.0 Blood monocytes automated count (number/volume) 1. 3 10*3 0.0-1.0 Automated eosinophil count 0.2 10*3/uL 0 .0-0.3 Automated blood basophil count (count/volume) 0.0 10*3/uL 0.0-0.1 Blood type T Indirect antibody screen pa nyla - 04/29/19 20:05 WRISTBAND NUMBER [id number] NRG ABO+Rh group ABP NRG Blood group antibody screen NEGATIVE NR G Complete blood count (CBC) with automate d white blood cell (WBC) differential - 05/01/19 05:02 Blood leukocytes automated count (number/volume) 22.5 10*3/uL 4.3-11.0 Blood erythrocytes automated count (number/volume) 3.98 10*6/uL 4.35-5.85 Venous blood hemoglobin measurement (mass/volume) 10.7 g/dL 11.5-16.0 Blood hematocrit (volume fraction) 33 % 35-52 Automated erythrocyte mean corpuscular volume 83 [ foz_us] 80-99 Automated erythrocyte mean corpuscular h emoglobin (mass per erythrocyte) 27 pg 25-34 Automated erythrocyte mean corpuscular h emoglobin concentration measurement (mass/volume) 32 g/dL 32-36 Automated erythrocyte distribution width ratio 16. 1 % 10.0- 14.5 Automated blood platelet count (count/volume) 287 10*3/uL 130-400 Automated blood platelet mean volume measurement 8.5 [foz_us] 7.4-10.4 Automated blood neutrophils/100 leukocytes 80 % 42-75 Automated blood lymphocytes/100 leukocytes 11 % 12-44 Blood monocytes/100 leukocytes 8 % 0-12 Automated blood eosinophils/100 leukocytes 1 % 0-10 Automated blood basophils/100 leukocytes 0 % 0-10 Blood neutrophils automated count (number/volume) 18.1 10*3 1.8-7.8 Blood lymphocytes automated count (number/volume) 2.5 10*3 1.0-4.0 Blood monocytes automated count (number/volume) 1. 8 10*3 0.0-1.0 Automated eosinophil count 0.2 10*3/uL 0 .0-0.3 Automated blood basophil count (count/volume) 0.0 10*3/uL 0.0-0.1 Manual absolute plasma cell count - 10/0 08/19 05:02 Blood monocytes/100 leukocytes 6 % NRG Manual blood segmented neutrophils/100 leukocytes 86 % NRG Manual blood lymphocytes/100 leukocytes 8 % NRG Encounters ACCT No. Visit Date/Time Discharge Status Pt. Type Provider Facility Loc./Unit Complaint [id number] 10/15/2017 11:21:00 10/15/2017 14:36: 00 DIS Emergency Kevyn WATERS on [facility] 042 [id number] 04/29/2019 19:47:00 14:15:00 DIS Inpatient VERONICA DELEON DO Via [facility] LDRP INDUCTION [id number] 04/24/2019 14:49:00 15:55:00 DIS Outpatient FENECH DO LIAN S [facility] WSo CONTRACTIONS [id number] 04/05/2019 22:18:00 23:19:00 DIS Outpatient FENECH DO LIAN S [facility] WSo CONTRACTIONS [id number] 02/12/2019 08:02:00 10:27:00 DIS Inpatient JIM FLORES DO [facility] LDRP PELVIC PAIN [id number] 12/18/2018 11:24:00 23:59:59 CLS Outpatient VERONICA DELEON DO [facility] RAD FETUS PRESENT SECOND TR AMANDA
[2019-11-19] MEDS ORDERED: NS IV 1000 ML 1,000 ML ONE (06:32)
--- NOTE | 2019-11-19 06:35 | ED Abdominal Pain ---
General Chief Complaint: Abdominal/GI Problems Stated Complaint: ABD AND PELVIC PAIN History of Present Illness Date Seen by Provider: Nov 19, 2019 Time Seen by Provider: 06:30 Initial Comments 24-year-old female presents with left-sided abdominal pain. Patient reports that the pain started yesterday. She reports she saw Dr. Deleon yesterday and was told that "monitor" her test. Patient with negative test here in the ER. Patient reports she's had some nausea with no vomiting. She's had diarrhea for about a week. She states that this morning she felt "dizzy" patient's last menstrual period was 10/10/2019. Patient does not have any abnormal vaginal bleeding. The pain is more in the left lateral mid abdomen that radiates down into the upper pelvis. She denies any fevers or chills. She denies any urinary symptoms. Allergies and Home Medications Allergies Uncoded Allergies: Pencillin (Allergy, Mild, rash, 02/12/19) rash as a child Home Medications Docusate Sodium 100 Mg Capsule, 100 MG PO BID Prescribed by: VERONICA DELEON on 05/02/19 0825 Ferrous Sulfate 325 Mg Tablet, 325 MG PO DAILY Prescribed by: VERONICA DELEON on 05/02/19 0825 Ibuprofen 600 Mg Tablet, 600 MG PO Q6HR Prescribed by: VERONICA DELEON on 05/02/19 0825 Magnesium Hydroxide 400 Mg/5 Ml Oral.susp, 30 ML PO DAILY PRN for CONSTIPATION- 7TH LINE Prescribed by: VERONICA DELEON on 05/02/19 0825 Vit/Iron Fumarate/FA 1 Each Tablet, 1 EACH PO DAILY, (Reported) Patient Home Medication List Home Medication List Reviewed: Yes Review of Systems Review of Systems Constitutional: No chills, No fever EENTM: No Symptoms Reported Respiratory: Denies Cough, Denies Shortness of Air Cardiovascular: Denies Chest Pain, Denies Irregular Heart Rate Gastrointestinal: Denies Abdomen Distended; Abdominal Pain, Diarrhea, Nausea; Denies Vomiting Genitourinary: No Symptoms Reported Skin: no symptoms reported Psychiatric/Neurological: No Symptoms Reported Past Vfyveth-Zetgdw-Ywrtfc Hx Past Med/Social Hx: Reviewed Nursing Past Med/Soc Hx Patient Social History Recent Foreign Travel: No Contact w/Someone Who Travel: No Recent Hopitalizations: No Seasonal Allergies Seasonal Allergies: No Past Medical History Surgeries: Yes Respiratory: No Cardiac: No Neurological: No Genitourinary: Yes ("2-3 months ago") Kidney Infection Gastrointestinal: No Musculoskeletal: No Endocrine: No HEENT: No Cancer: No Psychosocial: No Integumentary: No Blood Disorders: No Adverse Reaction/Blood Tranf: No Physical Exam Vital Signs Vital Signs - First Documented 11/19/19 06:22 Temp 36.5 Pulse 91 Resp 20 B/P (MAP) 147/100 (116) Pulse Ox 100 O2 Delivery Room Air Capillary Refill : Height/Weight/BMI Height: 5'2.00" Weight: 180lbs. 0.0oz. 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, alert, normal mood/affect, oriented x 3 Skin: normal color, warm/dry Progress/Results/Core Measures Results/Orders Lab Results Laboratory Tests Test 11/19/19 06:32 Range/Units White Blood Count 9.3 4.3-11.0 10^3/uL Red Blood Count 5.47 4.35-5.85 10^6/uL Hemoglobin 14.7 11.5-16.0 G/DL Hematocrit 44 35-52 % Mean Corpuscular Volume 81 80-99 FL Mean Corpuscular Hemoglobin 27 25-34 PG Mean Corpuscular Hemoglobin Concent 33 32-36 G/DL Red Cell Distribution Width 14.4 10.0-14.5 % Platelet Count 342 130-400 10^3/uL Mean Platelet Volume 8.6 7.4-10.4 FL Neutrophils (%) (Auto) 66 42-75 % Lymphocytes (%) (Auto) 24 12-44 % Monocytes (%) (Auto) 8 0-12 % Eosinophils (%) (Auto) 2 0-10 % Basophils (%) (Auto) 0 0-10 % Neutrophils # (Auto) 6.1 1.8-7.8 X 10^3 Lymphocytes # (Auto) 2.3 1.0-4.0 X 10^3 Monocytes # (Auto) 0.7 0.0-1.0 X 10^3 Eosinophils # (Auto) 0.2 0.0-0.3 10^3/uL Basophils # (Auto) 0.0 0.0-0.1 10^3/uL Urine Color YELLOW Urine Clarity CLEAR Urine pH 5.5 5-9 Urine Specific [place] >=1.030 1.016-1.022 Urine Protein NEGATIVE NEGATIVE Urine Glucose (UA) NEGATIVE NEGATIVE Urine Ketones NEGATIVE NEGATIVE Urine Nitrite NEGATIVE NEGATIVE Urine Bilirubin NEGATIVE NEGATIVE Urine Urobilinogen 0.2 < = 1.0 MG/DL Urine Leukocyte Esterase NEGATIVE NEGATIVE Urine RBC (Auto) 1+ H NEGATIVE Urine RBC 0-2 /HPF Urine WBC RARE /HPF Urine Squamous Epithelial Cells 10-25 H /HPF Urine Crystals NONE /LPF Urine Bacteria FEW H /HPF Urine Casts NONE /LPF Urine Mucus NEGATIVE /LPF Urine Culture Indicated NO Sodium Level 138 135-145 MMOL/L Potassium Level 4.0 3.6-5.0 MMOL/L Chloride Level 109 H 98-107 MMOL/L Carbon Dioxide Level 19 L 21-32 MMOL/L Anion Gap 10 5-14 MMOL/L Blood Urea Nitrogen 14 7-18 MG/DL Creatinine 0.84 0.60-1.30 MG/DL Estimat Glomerular Filtration Rate > 60 BUN/Creatinine Ratio 17 Glucose Level 106 H 70-105 MG/DL Calcium Level 9.1 8.5-10.1 MG/DL Corrected Calcium 8.9 8.5-10.1 MG/DL Total Bilirubin 0.4 0.1-1.0 MG/DL Aspartate Amino Transf (AST/SGOT) 16 5-34 U/L Alanine Aminotransferase (ALT/SGPT) 22 0-55 U/L Alkaline Phosphatase 81 40-136 U/L Total Protein 7.3 6.4-8.2 GM/DL Albumin 4.2 3.2-4.5 GM/DL Lipase 20 8-78 U/L My Orders Orders - JESU GONZALEZ L DO Comprehensive Metabolic Panel (11/19/19 06:38) Lipase (11/19/19 06:38) Ua Culture If Indicated (11/19/19 06:38) Urine Bedside (11/19/19 06:38) Cbc With Automated Diff (11/19/19 06:38) Ketorolac Injection (Toradol Injection) (11/19/19 06:45) Abdomen, Flat & Upright/Decub (11/19/19 06:38) Ed Iv/Invasive Line Start (11/19/19 06:38) Ns Iv 1000 Ml (Sodium Chloride 0.9%) (11/19/19 06:38) Ns Iv 1000 Ml (Sodium Chloride 0.9%) (11/19/19 06:32) Medications Given in ED Current Medications Medications Dose Ordered Sig/Adelita Route Start Time Stop Time Status Last Admin Dose Admin Ketorolac Tromethamine 15 mg ONCE ONCE IVP 11/19/19 06:45 11/19/19 06:46 DC 11/19/19 06:42 15 MG Vital Signs/I&O 11/19/19 06:22 Temp 36.5 Pulse 91 Resp 20 B/P (MAP) 147/100 (116) Pulse Ox 100 O2 Delivery Room Air Progress Progress Note : Time: 07:25 Progress Note Patient with no acute findings on x-ray, labs or physical exam. Patient's pain was more in the abdomen and pelvis. Patient did change her story little bit this started in her pelvis and wanted to her abdomen when initially she told me it started in her abdomen and went to her pelvis. Patient was offered a CAT scan due to her story changed. However she deferred. I discussed with patient that is likely gastroenteritis with some mild dehydration with likely getting ready to start her menstrual cycle since she is approximately 10 days late. She did have a negative test here in the ER. She should follow-up with her primary care provider as needed or return to the ER if symptoms severely worsen. Diagnostic Imaging Diagonstic Imaging: Xray Plain Films/CT/US/NM/MRI: abdomen Comments no acute finding Departure Impression Primary Impression: Gastroenteritis Additional Impression: Abdominal cramping Disposition: 01 HOME, SELF-CARE Condition: Stable Departure-Patient Inst. Referrals: VERONICA DELEON DO (PCP/Family) Primary Care Physician Patient Instructions: Viral Gastroenteritis, Adult (DC), Acute Abdomen (Belly Pain) Add. Discharge Instructions: Emergency department focuses on treating and ruling out life-threatening diseases. Whenever possible, a diagnosis is given. However, most patients are given an impression based on their history, physical exam, and workup during your brief time in the ER. Information about probable diagnosis and other educational material has been provided. Please take the time to read and understand this information. It is very important that you follow up with a physician as discussed during the visit today. Failure to adhere to your follow-up instructions may lead to severe disability, injury, or so please make sure to keep your appointments or obtain one as requested. Please keep in mind the emergency department is not d esigned to your primary care or "family doctor" and nonurgent issues are best evaluated by an outpatient physician All discharge instructions reviewed with patient and/or family. Voiced understanding. JESU GONZALEZ DO Nov 19, 2019 06:35
[2019-11-19] MEDS ORDERED: NS IV 1000 ML 1,000 ML IV SCH (06:38)
[2019-11-19] MEDS ORDERED: KETOROLAC 30 MG/ML VIAL IVP ONE (06:45)
[2019-11-19 06:46] LABS: BILIRUBIN,URINE NEGATIVE (NEGATIVE); CLARITY,URINE CLEAR; COLOR,URINE YELLOW; GLUCOSE, URINE (UA) NEGATIVE (NEGATIVE); KETONES,URINE NEGATIVE (NEGATIVE); LEUKOCYTE ESTERASE ,URINE NEGATIVE (NEGATIVE); NITRITE,URINE NEGATIVE (NEGATIVE); PH,URINE 5.5 (5-9); PROTEIN,URINE NEGATIVE (NEGATIVE)
[2019-11-19 06:51] LABS: BASOPHILS % (AUTO) 0 % (0-10); EOSINOPHILS # (AUTO) 0.2 10^3/uL (0.0-0.3); EOSINOPHILS % (AUTO) 2 % (0-10); HEMATOCRIT 44 % (35-52); HEMOGLOBIN 14.7 G/DL (11.5-16.0); LYMPHOCYTES # (AUTO) 2.3 X 10^3 (1.0-4.0); LYMPHOCYTES % (AUTO) 24 % (12-44); MEAN CORPUSCULAR HEMOGLOBIN 27 PG (25-34); MEAN CORPUSCULAR HGB CONC 33 G/DL (32-36); MEAN CORPUSCULAR VOLUME 81 FL (80-99); MEAN PLATELET VOLUME 8.6 FL (7.4-10.4); MONOCYTES # (AUTO) 0.7 X 10^3 (0.0-1.0); MONOCYTES % (AUTO) 8 % (0-12); NEUTROPHILS # (AUTO) 6.1 X 10^3 (1.8-7.8); NEUTROPHILS % (AUTO) 66 % (42-75); PLATELET COUNT 342 10^3/uL (130-400); RED CELL DISTRIBUTION WIDTH 14.4 % (10.0-14.5); WHITE BLOOD COUNT 9.3 10^3/uL (4.3-11.0)
[2019-11-19 06:55] LABS: ALBUMIN 4.2 GM/DL (3.2-4.5); CHLORIDE 109 MMOL/L (98-107); SODIUM 138 MMOL/L (135-145)
[2019-11-19 06:56] LABS: CALCIUM 9.1 MG/DL (8.5-10.1)
[2019-11-19 06:57] LABS: GLUCOSE 106 MG/DL (70-105)
[2019-11-19 06:58] LABS: TOTAL PROTEIN 7.3 GM/DL (6.4-8.2)
[2019-11-19 06:59] LABS: BILIRUBIN,TOTAL 0.4 MG/DL (0.1-1.0); CARBON DIOXIDE 19 MMOL/L (21-32)
--- NOTE | 2019-11-19 06:59 | NUR ---
REPORT AND PT CARE GIVEN TO JOSEPH CHRISTIE
[2019-11-19 07:01] LABS: ALKALINE PHOSPHATASE 81 U/L (40-136); CREATININE SERUM 0.84 MG/DL (0.60-1.30); GFR ESTIMATED > 60
[2019-11-19 07:02] LABS: BUN/CREATININE RATIO 17
[2019-11-19 07:04] LABS: ALANINE AMINOTRANSFERASE 22 U/L (0-55)
[2019-11-19 07:05] LABS: LIPASE 20 U/L (8-78)
[2019-11-19 07:06] LABS: BACTERIA,URINE FEW /HPF; RBC,URINE 0-2 /HPF; WBC,URINE RARE /HPF
--- NOTE | 2019-11-19 07:23 | NUR ---
IN TALKING TO PT AT THIS TIME
--- NOTE | 2019-11-19 07:47 | Diagnostic Imaging Report ---
INDICATION: Abdominal pain. COMPARISON: None available. FINDINGS: Nonobstructive bowel gas pattern. No features of free intraperitoneal air. No abnormal soft tissue mineralizations to suggest urinary tract calculi. Normal regional skeleton. Lung bases are clear. IMPRESSION: No abnormality per radiography. Dictated by: Dictated on workstation # [id number]
[2019-11-19 07:48] VITALS: BP 115/75
== END 2019-11-19 07:47 | disposition home or self-care (01) ==
LOC: EDUNIT# 06:19 → ER 06:21
DX: K52.9 Noninfective gastroenteritis and colitis, unspecified (principal); Z88.0 Allergy status to penicillin
CPT/HCPCS: 36415; 74019; 80053; 81000; 83690; 84703; 85025

== ENCOUNTER 2020-11-18 13:47 | Emergency (ER) | payer MEDICAID ==
[~2020-11-18] VITALS: Ht 157 cm; Wt 72.0 kg
[2020-11-18 14:06] LABS: BILIRUBIN,URINE NEGATIVE (NEGATIVE); CLARITY,URINE CLEAR; COLOR,URINE YELLOW; GLUCOSE, URINE (UA) NEGATIVE (NEGATIVE); KETONES,URINE NEGATIVE (NEGATIVE); LEUKOCYTE ESTERASE ,URINE NEGATIVE (NEGATIVE); NITRITE,URINE NEGATIVE (NEGATIVE); PROTEIN,URINE NEGATIVE (NEGATIVE)
[2020-11-18 14:15] LABS: BACTERIA,URINE NEGATIVE /HPF
--- NOTE | 2020-11-18 14:21 | ED Abdominal Pain ---
General Chief Complaint: Abdominal/GI Problems Stated Complaint: L SIDED PAIN/BACK PAIN 8WKS Nursing Triage Note: PT AMB TO ROOM 6 PT CO OF ABD PAIN IN L ABD AREA AROUND TO BACK AREA. PT STATES HAS BEEN GOING ON FOR APPROX 2 WEEKS WORSE AT TIMES RATES 3/10 AT THIS X. PT IS APPROX 8 WEEKS PREG. Sepsis Screen: No Definite Risk Source of Information: Patient Exam Limitations: No Limitations History of Present Illness Date Seen by Provider: Nov 18, 2020 Time Seen by Provider: 13:49 Initial Comments This is a well-appearing 25-year-old female who presents to the ER with complaints of left lower quadrant and left side pain x2 weeks. States that she believes she is approximately 8 weeks . LMP unknown. States pain is an intermittent dull ache. Has not taken taken anything at this time. Currently reports pain 2/10. Denies fever, nausea/vomiting, vaginal bleeding, cramping, discharge, dysuria, or hematuria. Allergies and Home Medications Allergies Uncoded Allergies: Pencillin (Allergy, Mild, rash, 02/12/19) rash as a child Home Medications Docusate Sodium 100 Mg Capsule, 100 MG PO BID Prescribed by: VERONICA DELEON on 05/02/19824 Ferrous Sulfate 325 Mg Tablet, 325 MG PO DAILY Prescribed by: VERONICA DELEON on 05/02/19 08 Ibuprofen 600 Mg Tablet, 600 MG PO Q6HR Prescribed by: VERONICA DELEON on 05/02/19 0825 Magnesium Hydroxide 400 Mg/5 Ml Oral.susp, 30 ML PO DAILY PRN for CONSTIPATION- 7TH LINE Prescribed by: VERONICA DELEON on 05/02/19 0825 Vit/Iron Fumarate/FA 1 Each Tablet, 1 EACH PO DAILY, (Reported) Patient Home Medication List Home Medication List Reviewed: Yes Review of Systems Review of Systems Constitutional: no symptoms reported EENTM: No Symptoms Reported Respiratory: No Symptoms Reported Cardiovascular: No Symptoms Reported Gastrointestinal: See HPI Genitourinary: No Symptoms Reported; Denies Discharge, Denies Hematuria, Denies Pain Musculoskeletal: no symptoms reported Skin: no symptoms reported Psychiatric/Neurological: No Symptoms Reported Endocrine: No Symptoms Reported Hematologic/Lymphatic: No Symptoms Reported Past Fxzxltz-Vqakej-Qsiaiw Hx Patient Social History Alcohol Use: Denies Use Number of Drinks Today: AA Alcohol Beverage of Choice: Beer Smoking Status: Never a Smoker Recent Infectious Disease Expo: No Recent Hopitalizations: No Immunizations Up To Date Tetanus Booster (TDap): Unknown Seasonal Allergies Seasonal Allergies: No Past Medical History Surgeries: Yes Respiratory: No Cardiac: No Neurological: No : 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 0.0oz. 81.123583gi; 29.00 BMI Method: General Appearance: WD/WN, no apparent distress HEENT: PERRL/EOMI, normal ENT inspection, pharynx normal Neck: full range of motion, normal inspection Respiratory: lungs clear, normal breath sounds Cardiovascular: regular rate, rhythm, no murmur Gastrointestinal: normal bowel sounds, soft, tenderness (LLQ ) Extremities: normal range of motion, non-tender, normal inspection Back: normal inspection, no CVA tenderness, no vertebral tenderness Neurologic/Psychiatric: no motor/sensory deficits, alert, normal mood/affect, oriented x 3 Skin: normal color, warm/dry Progress/Results/Core Measures Results/Orders Lab Results Laboratory Tests Test 11/18/20 14:02 11/18/20 14:19 Range/Units Urine Color YELLOW Urine Clarity CLEAR Urine pH 6.0 5-9 Urine Specific [place] <=1.005 1.016-1.022 Urine Protein NEGATIVE NEGATIVE Urine Glucose (UA) NEGATIVE NEGATIVE Urine Ketones NEGATIVE NEGATIVE Urine Nitrite NEGATIVE NEGATIVE Urine Bilirubin NEGATIVE NEGATIVE Urine Urobilinogen 0.2 < = 1.0 MG/DL Urine Leukocyte Esterase NEGATIVE NEGATIVE Urine RBC (Auto) TRACE-I NEGATIVE Urine RBC NONE /HPF Urine WBC NONE /HPF Urine Crystals NONE /LPF Urine Bacteria NEGATIVE /HPF Urine Casts NONE /LPF Urine Mucus NEGATIVE /LPF Urine Culture Indicated NO White Blood Count 12.2 H 4.3-11.0 10^3/uL Red Blood Count 5.02 3.80-5.11 10^6/uL Hemoglobin 14.0 11.5-16.0 g/dL Hematocrit 43 35-52 % Mean Corpuscular Volume 87 80-99 fL Mean Corpuscular Hemoglobin 28 25-34 pg Mean Corpuscular Hemoglobin Concent 32 32-36 g/dL Red Cell Distribution Width 13.5 10.0-14.5 % Platelet Count 323 130-400 10^3/uL Mean Platelet Volume 8.2 L 9.0-12.2 fL Immature Granulocyte % (Auto) 0 % Neutrophils (%) (Auto) 70 42-75 % Lymphocytes (%) (Auto) 21 12-44 % Monocytes (%) (Auto) 7 0-12 % Eosinophils (%) (Auto) 2 0-10 % Basophils (%) (Auto) 0 0-10 % Neutrophils # (Auto) 8.6 H 1.8-7.8 X 10^3 Lymphocytes # (Auto) 2.6 1.0-4.0 X 10^3 Monocytes # (Auto) 0.8 0.0-1.0 X 10^3 Eosinophils # (Auto) 0.2 0.0-0.3 10^3/uL Basophils # (Auto) 0.0 0.0-0.1 10^3/uL Immature Granulocyte # (Auto) 0.0 0.0-0.1 10^3/uL Sodium Level 137 135-145 MMOL/L Potassium Level 3.5 L 3.6-5.0 MMOL/L Chloride Level 106 98-107 MMOL/L Carbon Dioxide Level 21 21-32 MMOL/L Anion Gap 10 5-14 MMOL/L Blood Urea Nitrogen 10 7-18 MG/DL Creatinine 0.77 0.60-1.30 MG/DL Estimat Glomerular Filtration Rate > 60 BUN/Creatinine Ratio 13 Glucose Level 70 70-105 MG/DL Calcium Level 9.1 8.5-10.1 MG/DL Corrected Calcium 9.0 8.5-10.1 MG/DL Total Bilirubin 0.3 0.1-1.0 MG/DL Aspartate Amino Transf (AST/SGOT) 16 5-34 U/L Alanine Aminotransferase (ALT/SGPT) 23 0-55 U/L Alkaline Phosphatase 83 40-136 U/L Total Protein 7.0 6.4-8.2 GM/DL Albumin 4.1 3.2-4.5 GM/DL Human Chorionic Gonadotropin, Quant 46866 H <5 MIU/ML My Orders Orders - MALINDA BECERRIL APRN Ua Culture If Indicated (11/18/20 13:49) Urine Bedside (11/18/20 13:49) Cbc With Automated Diff (11/18/20 14:15) Comprehensive Metabolic Panel (11/18/20 14:15) Hcg,Quantitative (11/18/20 14:15) Us Ob<14 Wks Sngle W/Transvag (11/18/20 14:12) Vital Signs/I&O 11/18/20 11/18/20 13:55 17:29 Temp 36.1 Pulse 88 73 Resp 18 18 B/P (MAP) 143/82 (102) 130/94 Pulse Ox 99 100 O2 Delivery Room Air Blood Pressure Mean: 102 Progress Progress Note : Progress Note Pt. examined and in no acute distress. Based on H&P this likely represents a musculoskeletal issue, however with her LLQ pain will order basic labs, HCG, and US to r/o ectopic . Labs reviewed, noted to have slight elevation in WBC-12.2. UA negative for UTI. US shows single live IUP 7 weeks 1 day gestational age. Estimated date of confinement sonographically is 07/06/2021. Reviewed findings with patient, offered to obtain wet prep to check for BV. However, she declined at this time. Reviewed discharge plan of care and she is agreeable with plan. Diagnostic Imaging Diagonstic Imaging: Ultrasound Plain Films/CT/US/NM/MRI: other ( ) Comments NAME: FARZANEHISAIGABRIELLA [facility] REC#: [id number] PT STATUS: DEP ER : 1995 PHYSICIAN: MALINDA BECERRIL APRN ADMIT DATE: 11/18/20/ER Signed Date of Exam:11/18/20 US OB<14 WKS SNGLE W/TRANSVAG INDICATION: Left-sided pelvic pain. FINDINGS: There is a single live IUP approximately 7 weeks 1 day gestational age. heart rate was recorded at 146 bpm. No gurmeet-gestational sac hemorrhage is detected. Right and left ovaries are unremarkable. No adnexal mass or free fluid is detected. IMPRESSION: Single live IUP 7 weeks 1 day gestational age. Estimated date of confinement sonographically is 07/06/2021. Dictated by: Dictated on workstation # [id number] Dict: 11/18/20 1521 Trans: 11/18/20 1805 [facility] [id number] Interpreted by: GRISELDA CANO MD Electronically signed by: GRISELDA CANO MD 11/18/201804 Reviewed: Reviewed by Me Departure Impression Primary Impression: Left sided abdominal pain Disposition: HOME, SELF-CARE Condition: Improved Departure-Patient Inst. Decision time for Depature: 17:18 Referrals: VERONICA DELEON DO (PCP/Family) Primary Care Physician Patient Instructions: No Instuctions Given Add. Discharge Instructions: Plan: 1. Discharge home. Drink plenty of fluids. 2. Follow up with your primary care provider. 3. Return for any new or worsening symptoms. All discharge instructions reviewed with patient and/or family. Voiced underst anding. MALINDA BECERRIL FOOD SERVICE WORKER Nov 18, 2020 14:21
[2020-11-18 14:31] LABS: BASOPHILS % (AUTO) 0 % (0-10); EOSINOPHILS # (AUTO) 0.2 10^3/uL (0.0-0.3); EOSINOPHILS % (AUTO) 2 % (0-10); HEMATOCRIT 43 % (35-52); LYMPHOCYTES # (AUTO) 2.6 X 10^3 (1.0-4.0); LYMPHOCYTES % (AUTO) 21 % (12-44); MEAN CORPUSCULAR HEMOGLOBIN 28 pg (25-34); MEAN CORPUSCULAR HGB CONC 32 g/dL (32-36); MEAN CORPUSCULAR VOLUME 87 fL (80-99); MEAN PLATELET VOLUME 8.2 fL (9.0-12.2); MONOCYTES # (AUTO) 0.8 X 10^3 (0.0-1.0); MONOCYTES % (AUTO) 7 % (0-12); NEUTROPHILS # (AUTO) 8.6 X 10^3 (1.8-7.8); NEUTROPHILS % (AUTO) 70 % (42-75); PLATELET COUNT 323 10^3/uL (130-400); WHITE BLOOD COUNT 12.2 10^3/uL (4.3-11.0)
[2020-11-18 14:59] LABS: ALANINE AMINOTRANSFERASE 23 U/L (0-55); ALBUMIN 4.1 GM/DL (3.2-4.5); ALKALINE PHOSPHATASE 83 U/L (40-136); BILIRUBIN,TOTAL 0.3 MG/DL (0.1-1.0); BUN/CREATININE RATIO 13; CALCIUM 9.1 MG/DL (8.5-10.1); CARBON DIOXIDE 21 MMOL/L (21-32); CHLORIDE 106 MMOL/L (98-107); CREATININE SERUM 0.77 MG/DL (0.60-1.30); GFR ESTIMATED > 60; GLUCOSE 70 MG/DL (70-105); POTASSIUM 3.5 MMOL/L (3.6-5.0); SODIUM 137 MMOL/L (135-145)
--- NOTE | 2020-11-18 15:24 | Diagnostic Imaging Report ---
INDICATION: Left-sided pelvic pain. FINDINGS: There is a single live IUP approximately 7 weeks 1 day gestational age. heart rate was recorded at 146 bpm. No gurmeet-gestational sac hemorrhage is detected. Right and left ovaries are unremarkable. No adnexal mass or free fluid is detected. IMPRESSION: Single live IUP 7 weeks 1 day gestational age. Estimated date of confinement sonographically is 07/06/2021. Dictated by: Dictated on workstation # [id number]
[2020-11-18 17:29] VITALS: BP 130/94
== END 2020-11-18 17:29 | disposition home or self-care (01) ==
LOC: EDUNIT# 13:47 → ER 13:50
DX: O26.891 Other specified pregnancy related conditions, first trimester (principal); R10.32 Left lower quadrant pain; Z88.0 Allergy status to penicillin; Z3A.08 8 weeks gestation of pregnancy
CPT/HCPCS: 36415; 76801; 76817; 80053; 81000; 84702; 84703; 85025

== ENCOUNTER → 2021-02-16 | Outpatient (CLI) | payer MEDICAID ==
--- NOTE | 2021-02-16 11:56 | Diagnostic Imaging Report ---
INDICATION: Survey for amniotic fluid leaking. A Fitzpatrick viable IUP is currently in breech position. The amniotic fluid index is within normal limits at 13.1 with the largest vertical pocket measuring 4.5 cm. The placenta anterior with no abruption or previa. The cervix is 4.6 cm in length and nondilated. No pathological finding at the anatomical survey was revealed however positioning limits interrogation of the kidneys. heart rate 161 bpm. IMPRESSION: Normal BRYANNA. Anterior placenta with no abruption or previa and nondilated cervix with its normal length. No pathological finding at the anatomical survey revealed however we acknowledge suboptimal visualization of the kidneys on a positional basis. TECHNIQUE: Multiple real-time grayscale images were obtained over the gravid uterus. COMPARISON: None FINDINGS: Biometrical measurements are as follows: Biparietal 4.74 cm, age 20 weeks 3 days. Head circumference 17.44 cm, age 20 weeks 0 days. Abdominal circumference 14.79 cm, age 20 weeks 1 days. Femur length 3.12 cm, age 19 weeks 5 days. Sonographic estimate age: 20 weeks 1 days. Sonographic estimated date of delivery: 07/05/2021. Estimated Weight: 321 gm (+/- 47 gm). LMP percentile: 49%. heart rate: 161 beats per minute. number: 1 of 1. IMPRESSION: Dictated by: Dictated on workstation # [id number]
== END ==
LOC: RAD 10:49
PROVIDERS: ATTEND Obstetrics & Gynecology
DX: Z34.82 Encounter for supervision of other normal pregnancy, second trimester (principal); Z3A.20 20 weeks gestation of pregnancy
CPT/HCPCS: 76805

== ENCOUNTER 2021-03-14 20:04 | Outpatient (CLI) | payer MEDICAID ==
[~2021-03-14] VITALS: Ht 157.5 cm; Wt 83.9 kg
[2021-03-14 20:25] VITALS: BP 124/71
[2021-03-14 20:29] VITALS: BP 124/71
[2021-03-14] MEDS ORDERED: METR500T PO (20:49)
[2021-03-14] MEDS ORDERED: DOXY1TAB6 PO (20:49)
[2021-03-14] MEDS ORDERED: ONDA-105 PO (20:50)
--- NOTE | 2021-03-16 08:04 | Physician Query-Final Dx ---
WILBER YEN 03/16/21 0804: Clinic Account Progress/Dx Physician Query: Please give diagnosis Please include # weeks gestation Date of Service Mar 14, 2021 at 20:04 LIAN FELIZ DO 03/16/21 0843: Clinic Account Progress/Dx DIAGNOSIS: Diagnosis 33 week IUP Headache Dehydration WILBER YEN Mar 16, 2021 08:04 LIAN FELIZ DO Mar 16, 2021 08:43
== END 2021-03-14 21:10 ==
LOC: LDRP 20:04 → WSo 20:04
PROVIDERS: ATTEND Obstetrics & Gynecology
DX: O26.893 Other specified pregnancy related conditions, third trimester (principal); E86.0 Dehydration; R51.9 Headache, unspecified; Z3A.33 33 weeks gestation of pregnancy
CPT/HCPCS: 87491; 87591; G0463; 36415; 99214

== ENCOUNTER → 2021-03-16 | Outpatient (CLI) | payer MEDICAID ==
[~2021-03-16] MED LIST changes: +DOXY1TAB6 PO; +METR500T PO; +ONDA-105 PO
--- NOTE | 2021-03-16 18:10 | Diagnostic Imaging Report ---
INDICATION: Follow-up of an amniotic fluid index. Follow-up of kidneys. COMPARISON: Comparison is made with a prior study from February 16, 2021. TECHNIQUE: Multiple real-time grayscale images were obtained over the gravid uterus. FINDINGS: Amniotic fluid index on today's examination is normal and measured at 15 cm. The placenta is located anteriorly. The cervical length is 5.9 cm, and the cervix is closed. The fetus is currently in a breech presentation which continues to result in a limited assessment of the kidneys. The left kidney is evident and demonstrates no evidence of hydronephrosis. There is again limited assessment of the right kidney, but no clear evidence to suggest hydronephrosis or pelvocaliectasis. cardiac motion is measured at 156 BPM. Limited anatomic assessment is otherwise unremarkable. IMPRESSION: 1. Continued limitations in assessment of the kidneys given positioning. The fetus is in a breech presentation with an anterior placenta. Left kidney unremarkable. Right kidney not clearly demonstrated, but there are no findings to suggest right-sided hydronephrosis. An additional follow-up could be considered. cardiac motion is appropriate. The cervix is closed, and amniotic fluid index is normal. Dictated by: Dictated on workstation # [id number]
== END ==
LOC: RAD 14:30
PROVIDERS: ATTEND Obstetrics & Gynecology
DX: O32.1XX0 Maternal care for breech presentation, not applicable or unspecified (principal); Z3A.00 Weeks of gestation of pregnancy not specified
CPT/HCPCS: 76805; 76816

== ENCOUNTER → 2021-04-24 | Outpatient (CLI) | payer MEDICAID ==
--- NOTE | 2021-04-24 18:21 | Diagnostic Imaging Report ---
INDICATION: Suboptimal evaluation of the kidneys on prior exam. Follow-up. TECHNIQUE: Multiple real-time grayscale images were obtained over the gravid uterus. COMPARISON: 04/24/2021. FINDINGS: Single live intrauterine is identified. heart rate measures 143 bpm. position is cephalic. Placenta is anterior, not low-lying. Cervix is closed and measures 3.3 cm in length. Formal anatomic survey was not performed on today's exam. Limited anatomic survey for kidneys was performed. Kidneys are identified and have an unremarkable sonographic appearance. There is no evidence of caliectasis nor pelviectasis. IMPRESSION: 1. Bilateral kidneys are identified and have an unremarkable sonographic appearance. 2. Single live intrauterine . Dictated by: Dictated on workstation # [id number]
== END ==
LOC: RAD 12:41
PROVIDERS: ATTEND Obstetrics & Gynecology
DX: Z34.82 Encounter for supervision of other normal pregnancy, second trimester (principal); Z3A.00 Weeks of gestation of pregnancy not specified
CPT/HCPCS: 76816

== ENCOUNTER 2021-05-20 11:22 | Outpatient (CLI) | payer MEDICAID ==
[2021-05-20] VITALS (7 sets, daily range): BP systolic 111–117; BP diastolic 69–75
[~2021-05-20] VITALS: Ht 157.4 cm; Wt 92.3 kg
--- NOTE | 2021-05-21 08:22 | Physician Query-Final Dx ---
WILBER YEN 05/21/21 0822: Clinic Account Progress/Dx Physician Query: Please give diagnosis Please include # weeks gestation Date of Service May 20, 2021 at 11:22 VERONICA DELEON DO 05/22/21 1256: Clinic Account Progress/Dx DIAGNOSIS: Diagnosis third trimester fall at home left holly WILBER YEN May 21, 2021 08:22 VERONICA DELEON DO May 22, 2021 12:56
== END 2021-05-20 14:40 | disposition home or self-care (01) ==
LOC: WSo 11:22 → LDRP 11:26 → WSo 14:40
PROVIDERS: ATTEND Obstetrics & Gynecology
DX: O26.893 Other specified pregnancy related conditions, third trimester (principal); W19.XXXA Unspecified fall, initial encounter; Z3A.00 Weeks of gestation of pregnancy not specified
CPT/HCPCS: 99213

== ENCOUNTER 2021-06-29 01:33 | Inpatient (IN) | payer MEDICAID ==
[2021-06-29] VITALS (38 sets, daily range): BP systolic 99–146; BP diastolic 57–82
[2021-06-29] MEDS ORDERED: D5 LR IV SOLUTION 1,000 ML IV ONE ×2 (01:57→06:45)
[2021-06-29] MEDS ORDERED: fentaNYL 2 mcg/ml BUPIVA 0.125 100 ML ONE (02:04)
[2021-06-29] MEDS ORDERED: D5 LR IV SOLUTION 1,000 ML IV SCH (02:15)
[2021-06-29 02:22] LABS: BASOPHILS # (AUTO) 0.1 10^3/uL (0.0-0.1); BASOPHILS % (AUTO) 0 % (0-10); EOSINOPHILS # (AUTO) 0.2 10^3/uL (0.0-0.3); EOSINOPHILS % (AUTO) 1 % (0-10); HEMATOCRIT 35 % (35-52); HEMOGLOBIN 11.2 g/dL (11.5-16.0); LYMPHOCYTES # (AUTO) 3.5 10^3/uL (1.0-4.0); LYMPHOCYTES % (AUTO) 18 % (12-44); MEAN CORPUSCULAR HEMOGLOBIN 25 pg (25-34); MEAN CORPUSCULAR HGB CONC 32 g/dL (32-36); MEAN CORPUSCULAR VOLUME 78 fL (80-99); MONOCYTES # (AUTO) 1.3 10^3/uL (0.0-1.0); MONOCYTES % (AUTO) 7 % (0-12); NEUTROPHILS # (AUTO) 13.8 10^3/uL (1.8-7.8); NEUTROPHILS % (AUTO) 73 % (42-75); PLATELET COUNT 368 10^3/uL (130-400); WHITE BLOOD COUNT 18.9 10^3/uL (4.3-11.0)
[2021-06-29 03:03] LABS: ATYPICAL LYMPHOCYTES 1 %; BAND NEUTROPHILS 2 %; LYMPHOCYTES % (MANUAL) 20 %; MONOCYTES % (MANUAL) 6 %; NEUTROPHILS % (MANUAL) 71 %; RBC MORPH NORMAL
[2021-06-29] MEDS ORDERED: BUPIVACAINE 0.25% 30 ML (SENSORCAINE) VIAL ONE (03:03)
[2021-06-29] MEDS ORDERED: fentaNYL INJ 100 MCG/2 ML AMP ONE (03:03)
[2021-06-29] MEDS ORDERED: NALOXONE 0.4 MG/ML 1 ML (NARCAN) VIAL IV PRN ×2 (03:15→06:45)
[2021-06-29] MEDS ORDERED: fentaNYL INJ 100 MCG/2 ML AMP INJ ONE (03:15)
[2021-06-29] MEDS ORDERED: EPIDURAL (fentaNYL 2 MCG/ML BUPIVA 0.125%)100 ML BAG EPI PRN (03:15)
[2021-06-29] MEDS ORDERED: LACTATED RINGERS 1,000 ML IV ONE ×2 (03:15)
[2021-06-29] MEDS ORDERED: ONDANSETRON 4 MG/2 ML (SDV) Z0FRAN IV PRN (03:15)
[2021-06-29] MEDS ORDERED: VANCOMYCIN INJECTION 1,000 MG in NS (IVPB) 250 ML IV SCH (05:00)
[2021-06-29] MEDS ORDERED: OXYTOCIN PRE-MIX DRIP 1,000 ML IV ONE (05:12)
[2021-06-29] MEDS ORDERED: MEPIVACAINE (CARBOCAINE) 2% 50 ML VIAL ONE (05:21)
[2021-06-29] MEDS ORDERED: LIDOCAINE/EPI 2% 1:200,00 (XYLOCAINE) 10 ML VIAL ONE (05:21)
[2021-06-29] MEDS ORDERED: CATHETER FLUSH 10 ML SYR IV SCH ×2 (06:00→14:00)
--- NOTE | 2021-06-29 06:27 | History & Physical-OB ---
OB - Chief Complaint & HPI Date/Time Date of Admission: Date of Admission: Jun 29, 2021 at 02:00 Date seen by a Provider: Jun 29, 2021 Time Seen by a Provider: 05:20 Chief Complaint/History OB-Reason for Admission/Chief: Onset of Labor (term labor) Hx : 4 Hx Para: 1 Expected Date of Delivery: Jul 07, 2021 Gestational Age in Weeks: 38 Gestational Age in Days: 6 Admission Nurse Assessment Rev: Yes History of Labs AB+, HIV non-reactive, HBsAg non-reactive, Syphilis Ab non-reactive, GBS + Allergies and Home Medications Allergies Uncoded Allergies: Pencillin (Allergy, Mild, rash, 02/12/19) rash as a child Patient Home Medication List Home Medication List Reviewed: Yes Doxylamine Succinate/Vit B6 (Bonjesta ER 20-20 mg Tablet) 1 Each Tab.ir.dr, 1 EACH PO BID, (Reported) Entered as Reported by: LINDA HILL on 03/14/212048 Last Action: Reviewed Metronidazole (Flagyl) 500 Mg Tablet, 500 MG PO TID, (Reported) Entered as Reported by: LINDA HILL on 03/14/212048 Last Action: Reviewed Ondansetron HCl (Ondansetron HCl) 4 Mg Tablet, 4 MG PO TID PRN for NAUSEA-1ST LINE, (Reported) Entered as Reported by: LINDA HILL on 03/14/212049 Last Action: Reviewed Vit/Iron Fumarate/FA ( Vitamins Tablet) 1 Each Tablet, 1 EACH PO DAILY, (Reported) Entered as Reported by: LUZ MARINA BAH on 02/12/191957 Last Action: Reviewed OB - History Hx of Present Care: Yes Ultrasounds: Normal mid trimester US Obstetrical Complications: None Medical Complications: None Information Induced Hypertension: No Maternal Gestational Diabetes: No Hemorrhage: No Obstetrical History Hx : 4 Hx Para: 1 Hx Total # of Abortions (Spona: 2 Delivery History Hx Dystocia: No Hx Forceps Assisted Delivery: No Hx Vacuum Extraction Assisted: No Adverse Rxn to Tranfusion: No Patient Past Medical History Denies Social History/Family History Alcohol Use: Denies Use Recreational Drug Use: No 2nd Hand Smoke Exposure: No Immunizations Hepatitis A: Yes Hepatitis B: Yes Tetanus Booster (TDap): Unknown Date of Influenza Vaccine: May 01, 2021 OB - Admission Exam Physical Exam Vitals: Vital Signs 06/29/21 06/29/21 03:45 04:25 Temp 36.8 Pulse 94 Resp 18 B/P (MAP) 106/57 (73) Pulse Ox 99 O2 Delivery Room Air HEENT: EOMI Heart: Other (normal rate and peripheral perfusion) Abdomen: Gravid Extremities: Normal Reflexes: Normal Cervical Dilatation: 10cm Effacement: 100% Station: -1 Membranes: Ruptured Amniotic Fluid: Thick Meconium Heart Rate: 140's Accelerations: Accelerations Present Decelerations: Early Decelerations Short Term Variability: Present Mcc Variability: Average (6-25) Contractions on Admission: < 5 Minutes Apart Date/Time Contractions Began;: 06/29/21 at 0100 Frequency of Contractions: q 2min Labs Laboratory Tests Test 06/29/21 02:00 Range/Units White Blood Count 18.9 H 4.3-11.0 10^3/uL Red Blood Count 4.56 3.80-5.11 10^6/uL Hemoglobin 11.2 L 11.5-16.0 g/dL Hematocrit 35 35-52 % Mean Corpuscular Volume 78 L 80-99 fL Mean Corpuscular Hemoglobin 25 25-34 pg Mean Corpuscular Hemoglobin Concent 32 32-36 g/dL Red Cell Distribution Width 15.2 H 10.0-14.5 % Platelet Count 368 130-400 10^3/uL Mean Platelet Volume 9.0 9.0-12.2 fL Immature Granulocyte % (Auto) 1 % Neutrophils (%) (Auto) 73 42-75 % Lymphocytes (%) (Auto) 18 12-44 % Monocytes (%) (Auto) 7 0-12 % Eosinophils (%) (Auto) 1 0-10 % Basophils (%) (Auto) 0 0-10 % Neutrophils # (Auto) 13.8 H 1.8-7.8 10^3/uL Lymphocytes # (Auto) 3.5 1.0-4.0 10^3/uL Monocytes # (Auto) 1.3 H 0.0-1.0 10^3/uL Eosinophils # (Auto) 0.2 0.0-0.3 10^3/uL Basophils # (Auto) 0.1 0.0-0.1 10^3/uL Immature Granulocyte # (Auto) 0.2 H 0.0-0.1 10^3/uL Neutrophils % (Manual) 71 % Lymphocytes % (Manual) 20 % Monocytes % (Manual) 6 % Band Neutrophils 2 % Atypical Lymphocytes 1 % Blood Morphology Comment NORMAL OB - Assessment/Plan/Diagnosis Assessment Assessment: active labor, group B positive strep, rupture of membranes Admission Dx Pre-labor rupture of Membrane Spontaneous Labor Admission Status: Inpatient Order (span 2 midnights) Reason for Inpatient Admission: Active labor Plan Plan: Expectant Management SUZIE BOWMAN MD Jun 29, 2021 06:27
[2021-06-29] MEDS ORDERED: MEASLES,MUMPS,RUBELLA 1 EA INJ SQ ONE (06:45)
[2021-06-29] MEDS ORDERED: BENZOCAINE/MENTHOL (DERMOPLAST) 56 ML CAN TP PRN (06:45)
[2021-06-29] MEDS ORDERED: TETANUS,DIPTH,PERTUSS P/F (BOOSTRIX) 0.5 ML VIAL IM ONE (06:45)
[2021-06-29] MEDS ORDERED: WITCH HAZEL(TUCKS) 40 EA JAR TOP PRN (06:45)
--- NOTE | 2021-06-29 07:01 | OB Labor & Delivery Record ---
Vag Delivery Note Vag Delivery Note Date of Delivery: 06/29/21 Preoperative Diagnosis: Sherice Burnett is a (25 /Para 4 / 1,Gestational Age (wks)38with [] Postoperative Diagnosis: Same Surgeon: SUZIE BOWMAN Anesthesia: Epidural Delivery Type: Spontaneous vaginal delivery Findings: living female , apgars 6 and 8 at 1 and 5 minutes respectively, weight 3130g Thick meconium stained amniotic fluid with terminal meconium Lacerations: none Intact placenta with 3 vessel cord. No nuchal cord or shoulder dystocia Estimated Blood Loss: 100 ml Complications: None Condition: Stable Description of Procedure: The patient is a 25 year old female who presented with spontaneous rupture of labor and onset of contractions. She was therefore admitted and informed consent was obtained. Her labor course was otherwise unremarkable. She progressed to complete dilatation and began to push. She was then set up for delivery. The infant's head was delivered atraumatically in the OA position. The shoulders and remainder of the 's body were then delivered without difficulty. Upon delivery, the head was held below the level of the perineum and the mouth and nares were bulb suctioned. The cord was doubly clamped and cut and the was handed off to the nursing staff. An intact placenta with 3-vessel cord delivered and there was found to be minimal bleeding.Vigorous fundal massage was performed and the fundus was found to be firm. IV oxytocin was given. Examination of the vagina and perineum revealed no lacerations. Following the repair, sponge, instrument and needle counts were c orrect. Mom and baby were both in stable condition in the labor suite. Vitals - Labs Vital Signs - I&O Vital Signs Date Time Temp Pulse Resp B/P (MAP) Pulse Ox O2 Delivery O2 Flow Rate FiO2 06/29/21 04:25 36.8 94 18 99 Room Air 06/29/21 04:13 36.8 94 18 99 Room Air 06/29/21 03:45 94 18 106/57 (73) 99 06/29/21 03:30 106 18 132/76 (94) 98 06/29/21 03:00 97 18 100 06/29/21 02:30 97 18 100 06/29/21 02:00 36.8 94 18 144/70 (94) 99 Labs Laboratory Tests 06/29/21 02:00: White Blood Count 18.9H, Red Blood Count 4.56, Hemoglobin 11.2L, Hematocrit 35, Mean Corpuscular Volume 78L, Mean Corpuscular Hemoglobin 25, Mean Corpuscular Hemoglobin Concent 32, Red Cell Distribution Width 15.2H, Platelet Count 368, Mean Platelet Volume 9.0, Immature Granulocyte % (Auto) 1, Neutrophils (%) (Auto) 73, Lymphocytes (%) (Auto) 18, Monocytes (%) (Auto) 7, Eosinophils (%) (Auto) 1, Basophils (%) (Auto) 0, Neutrophils # (Auto) 13.8H, Lymphocytes # (Auto) 3.5, Monocytes # (Auto) 1.3H, Eosinophils # (Auto) 0.2, Basophils # (Auto) 0.1, Immature Granulocyte # (Auto) 0.2H, Neutrophils % (Manual) 71, Lymphocytes % (Manual) 20, Monocytes % (Manual) 6, Band Neutrophils 2, Atypical Lymphocytes 1, Blood Morphology Comment NORMAL SUZIE BOWMAN MD Jun 29, 2021 07:01
[2021-06-29] MEDS ORDERED: OXYTOCIN PRE-MIX DRIP 500 ML IV SCH (08:15)
[2021-06-29] MEDS: ACETAMINOPHEN 500 MG TAB (TYLENOL) PO PRN ×2 (11:42→18:24)
[2021-06-29] MEDS: DOCUSATE SODIUM 100 MG (COLACE) CAP PO SCH ×2 (11:42→20:54)
[2021-06-29] MEDS: IBUPROFEN 600 MG (MOTRIN) TAB PO SCH ×2 (11:42→18:24)
[2021-06-29] MEDS: FERROUS SULF 325 MG (IRON) TAB PO SCH (11:42)
[2021-06-29] MEDS: PRENATAL VITAMIN 1 EA TAB PO SCH (11:44)
[2021-06-30] MEDS: ACETAMINOPHEN 500 MG TAB (TYLENOL) PO PRN ×4 (00:41→20:19)
[2021-06-30] MEDS: IBUPROFEN 600 MG (MOTRIN) TAB PO SCH ×4 (00:41→20:19)
[2021-06-30 00:44] VITALS: BP 122/78
[2021-06-30 05:44] LABS: BASOPHILS # (AUTO) 0.1 10^3/uL (0.0-0.1); BASOPHILS % (AUTO) 0 % (0-10); EOSINOPHILS # (AUTO) 0.2 10^3/uL (0.0-0.3); EOSINOPHILS % (AUTO) 1 % (0-10); HEMATOCRIT 32 % (35-52); HEMOGLOBIN 10.1 g/dL (11.5-16.0); LYMPHOCYTES % (AUTO) 22 % (12-44); MEAN CORPUSCULAR HEMOGLOBIN 25 pg (25-34); MEAN CORPUSCULAR HGB CONC 31 g/dL (32-36); MEAN CORPUSCULAR VOLUME 80 fL (80-99); MEAN PLATELET VOLUME 8.5 fL (9.0-12.2); MONOCYTES # (AUTO) 0.8 10^3/uL (0.0-1.0); MONOCYTES % (AUTO) 4 % (0-12); NEUTROPHILS # (AUTO) 13.2 10^3/uL (1.8-7.8); NEUTROPHILS % (AUTO) 72 % (42-75); PLATELET COUNT 243 10^3/uL (130-400); WHITE BLOOD COUNT 18.4 10^3/uL (4.3-11.0)
[2021-06-30 06:01] VITALS: BP 106/99
--- NOTE | 2021-06-30 08:43 | Postpartum Progress Note ---
Note Note Day # 1 s/p Subjective: Patient is without complaints. Ambulating, voiding. Tolerating a regular diet without nausea or vomiting. Normal lochia. Pain is well controlled with oral pain medications. .states milk has not yet come in Objective: 06/29/21 06/30/21 06/30/21 21:04 00:44 06:01 Temp 36.6 36.2 Pulse 95 86 93 Resp 16 16 16 B/P (MAP) 111/82 (92) 122/78 (93) 106/99 (101) Pulse Ox 99 98 99 O2 Delivery Room Air Room Air Room Air Laboratory Tests Test 06/30/21 05:28 Range/Units White Blood Count 18.4 H 4.3-11.0 10^3/uL Red Blood Count 4.07 3.80-5.11 10^6/uL Hemoglobin 10.1 L 11.5-16.0 g/dL Hematocrit 32 L 35-52 % Mean Corpuscular Volume 80 80-99 fL Mean Corpuscular Hemoglobin 25 25-34 pg Mean Corpuscular Hemoglobin Concent 31 L 32-36 g/dL Red Cell Distribution Width 15.7 H 10.0-14.5 % Platelet Count 243 130-400 10^3/uL Mean Platelet Volume 8.5 L 9.0-12.2 fL Immature Granulocyte % (Auto) 1 % Neutrophils (%) (Auto) 72 42-75 % Lymphocytes (%) (Auto) 22 12-44 % Monocytes (%) (Auto) 4 0-12 % Eosinophils (%) (Auto) 1 0-10 % Basophils (%) (Auto) 0 0-10 % Neutrophils # (Auto) 13.2 H 1.8-7.8 10^3/uL Lymphocytes # (Auto) 4.0 1.0-4.0 10^3/uL Monocytes # (Auto) 0.8 0.0-1.0 10^3/uL Eosinophils # (Auto) 0.2 0.0-0.3 10^3/uL Basophils # (Auto) 0.1 0.0-0.1 10^3/uL Immature Granulocyte # (Auto) 0.2 H 0.0-0.1 10^3/uL Physical Exam: General - Alert and oriented, no apparent distress Abdomen - Soft, appropriately tender to palpation, non-distended, fundus firm at umbilicus Extremities - no edema, negative Андрей's bilaterally Assessment: 1 post- day # 1, status post spontaneous vaginal delivery. Recovering well, hemodynamically stable Plan: Routine care. Encourage breast feeding. Encourage ambulation. Ferrous sulfate supplementation. Plan for discharge Vitals - Labs Vital Signs - I&O Vital Signs Date Time Temp Pulse Resp B/P (MAP) Pulse Ox O2 Delivery O2 Flow Rate FiO2 06/30/21 06:01 93 16 106/99 (101) 99 Room Air 06/30/21 00:44 36.2 86 16 122/78 (93) 98 Room Air 06/29/21 21:04 36.6 95 16 111/82 (92) 99 Room Air 06/29/21 17:03 36.4 99 18 108/61 (77) 96 Room Air 06/29/21 11:46 36.6 124 18 111/67 (82) 97 Room Air 06/29/21 08:54 100 18 134/80 (98) Room Air Labs Laboratory Tests 06/30/21 05:28: White Blood Count 18.4H, Red Blood Count 4.07, Hemoglobin 10.1L, Hematocrit 32L, Mean Corpuscular Volume 80, Mean Corpuscular Hemoglobin 25, Mean Corpuscular Hem oglobin Concent 31L, Red Cell Distribution Width 15.7H, Platelet Count 243, Mean Platelet Volume 8.5L, Immature Granulocyte % (Auto) 1, Neutrophils (%) (Auto) 72, Lymphocytes (%) (Auto) 22, Monocytes (%) (Auto) 4, Eosinophils (%) (Auto) 1, Basophils (%) (Auto) 0, Neutrophils # (Auto) 13.2H, Lymphocytes # (Auto) 4.0, Monocytes # (Auto) 0.8, Eosinophils # (Auto) 0.2, Basophils # (Auto) 0.1, Immature Granulocyte # (Auto) 0.2H VERONICA DELEON DO Jun 30, 2021 08:43
[2021-06-30] MEDS ORDERED: IBUP-844 PO (08:47)
[2021-06-30] MEDS ORDERED: ACET-93 PO (08:47)
[2021-06-30] MEDS ORDERED: DOCU100C37 PO (08:47)
--- NOTE | 2021-06-30 08:48 | Discharge Inst-Women's Service ---
Discharge Inst-Women's Serv Depart Medication/Instructions New, Converted or Re-Newed RX: Transmitted to Pharmacy Final Diagnosis labor vaginal delivery Problems Reviewed?: Yes Consults/Follow Up Additional Follow Up: Yes (6 week for pp exam) Activity Activity: Activity as Tolerated Driving Instructions: You May Drive NO SMOKING: NO SMOKING Nothing Inside Vagina: No Douching, No [place] (4 weeks), No Tampons Diet Discharge Diet: No Restrictions Symptoms to Report to : Swelling Increased, Bleeding Excessive, Pain Increased, Fever Over 101 Degrees F, Vaginal Bleeding Increase, Cramps in Feet or Legs, Vaginal Discharge Foul For Any Problems or Questions: Contact Your Physician VERONICA DELEON DO Jun 30, 2021 08:48
[2021-06-30 09:02] VITALS: BP 118/66
[2021-06-30] MEDS: FERROUS SULF 325 MG (IRON) TAB PO SCH (09:02)
[2021-06-30] MEDS: DOCUSATE SODIUM 100 MG (COLACE) CAP PO SCH ×2 (09:02→20:19)
[2021-06-30] MEDS: PRENATAL VITAMIN 1 EA TAB PO SCH (09:02)
[2021-06-30 13:45] VITALS: BP 111/65
[2021-06-30 20:41] VITALS: BP 121/69
[2021-07-01] MEDS: ACETAMINOPHEN 500 MG TAB (TYLENOL) PO PRN (02:13)
[2021-07-01 02:14] VITALS: BP 113/66
[2021-07-01] MEDS: IBUPROFEN 600 MG (MOTRIN) TAB PO SCH ×2 (02:14→08:08)
[2021-07-01 07:57] VITALS: BP 114/75
[2021-07-01] MEDS: DOCUSATE SODIUM 100 MG (COLACE) CAP PO SCH (08:08)
[2021-07-01] MEDS: PRENATAL VITAMIN 1 EA TAB PO SCH (08:08)
[2021-07-01] MEDS: FERROUS SULF 325 MG (IRON) TAB PO SCH (08:08)
--- NOTE | 2021-07-01 09:02 | Anesthesia-Regional Post-Op ---
Regional Patient Condition Mental Status: Alert, Oriented x3 Circulation: Same as Pre-Op Headache: Absent Sensation: Full Recovery Motor Block: Absent Post Op Complications Complications None Follow Up Care/Instructions Patient Instructions None needed. Anesthesia/Patient Condition Patient is doing well, no complaints, stable vital signs, no apparent adverse anesthesia problems. No complications reported per nursing. RAMON BARBER CRNA Jul 01, 2021 09:02
--- NOTE | 2021-07-01 13:44 | Postpartum Progress Note ---
Note Note Day #2 Subjective: Patient is without complaints. Ambulating, voiding. Tolerating a regular diet without nausea or vomiting. Normal lochia. Pain is well controlled with oral pain medications. Desires discharge Objective: Vital Signs 07/01/21 14:00 Temp 35.8 Pulse 99 Resp 18 B/P (MAP) 114/75 Pulse Ox 98 O2 Delivery Room Air Physical Exam: General - Alert and oriented, no apparent distress Heart: normal rate and peripheral perfusion Lungs: Non-labored, symmetric chest rise Abdomen - Soft, appropriately tender to palpation, non-distended, fundus firm below umbilicus Extremities - no edema, negative Андрей's bilaterally Assessment: Post- day # 2, status post spontaneous vaginal delivery. Recovering well, hemodynamically stable Plan: Routine care. Encourage breast feeding. Encourage ambulation. Ferrous sulfate supplementation. Plan for discharge Vitals - Labs Vital Signs - I&O Vital Signs Date Time Temp Pulse Resp B/P (MAP) Pulse Ox O2 Delivery O2 Flow Rate FiO2 07/01/21 07:57 35.8 99 18 114/75 (88) 98 Room Air 07/01/21 02:14 36.9 98 18 113/66 (82) 97 Room Air 06/30/21 20:41 36.9 99 18 121/69 (86) 98 Room Air 06/30/21 13:45 36.7 90 18 111/65 (80) 98 Room Air SUZIE BOWMAN MD Jul 01, 2021 13:44
--- NOTE | 2021-07-01 13:45 | Short Stay Summary ---
Discharge Summary Hospital Course Final Diagnosis: Care s/p spontaneous vaginal delivery Hospital Course Date of Admission: Jun 29, 2021 at 02:00 Admission Diagnosis : Family Physician/Provider: Patricia Arce DO Date of Discharge: 07/01/21 Discharge Diagnosis: care, S/p spontaneous vaginal delivery Hospital Course: Sherice Burnett is a 25yo G4 now P2022 who was admitted in active labor. Her care was with Dr. Arce, and was uncomplciated. On presentation, patient was 3-4cm dilated with ruptured amniotic membranes. Vitals signs were stable, physical exam was benign,and FHT was reassuring. She was GBS positive, and received intrapartum antibiotics prophyalaxis. Her labor course was umcomplicated, and she received an epidural. She delivered a living female infant on 06/29/21, without complications and EBL was 100ml. Infant had Apgars of 6 at 1 minute and 8 at 5 minutes, weighing 3130g. Please see delivery summary for full details. Patient's course was uncomplicated. On PPD#1, she had a Hgb of 10.1g/dL, and was doing well. On PPD #2, she was meeting all goals; ambulating without difficulty, appropriate urine output, positive flatus, tolerating diet, minimal lochia, and pain was controlled. Patient was discharged to home on PPD #2 in stable medical condition Labs and Pending Lab Test: Home Meds Active Acetaminophen 500 Mg Tablet 1,000 Mg PO Q6HR PRN Ibu (Ibuprofen) 600 Mg Tablet 600 Mg PO Q6HR Docusate Sodium 100 Mg Capsule 100 Mg PO BID Reported Vitamins Tablet ( Vit/Iron Fumarate/FA) 1 Each Tablet 1 Each PO DAILY Assessment/Pt Instructions Keep all follow-up appointments Discharge Instructions Discharge Diet: No Restrictions Activity as Tolerated: Yes Consultations None Discharge Physical Examination General Appearance: Alert, Oriented X3, Cooperative, No Acute Distress HEENT: Atraumatic, EOMI Respiratory: Other (non-labored, symmetric chest rise) Cardiovascular: Regular Rate Abdominal: Soft, No Tenderness Extremities: No Edema, No Tenderness/Swelling Skin: No Rashes, No Breakdown Neuro: Normal Gait, Normal Speech, Sensation Intact Psych/Mental Status: Mental Status NL, Mood NL Allergies: Uncoded Allergies: Pencillin (Allergy, Mild, rash, 02/12/19) rash as a child Discharge Summary Date of Admission Jun 29, 2021 at 02:00 Date of Discharge 07/01/21 Discharge Date: Jun 30, 2021 Discharge Time: 13:30 Admission Diagnosis Contraction Labor Consults/Procedures Consulations None SUZIE BOWMAN MD Jul 01, 2021 13:45
[2021-07-01 14:00] VITALS: BP 114/75
== END 2021-07-01 14:00 | disposition home or self-care (01) | DRG 807 ==
LOC: LDRP 01:33 → WSo 01:33 → LDRP 02:00
PROVIDERS: ADMIT Obstetrics & Gynecology; ATTEND Obstetrics & Gynecology
PROC: 10E0XZZ Delivery of Products of Conception, External Approach (ICD-10-PCS; principal; 2021-06-29)
DX: O99.824 Streptococcus B carrier state complicating childbirth (principal); Z37.0 Single live birth; O77.0 Labor and delivery complicated by meconium in amniotic fluid; Z3A.38 38 weeks gestation of pregnancy; Z23 Encounter for immunization
CPT/HCPCS: 36415; 85007; 85025; 85027; 86850; 86900; 86901; 90707; 99212

== ENCOUNTER → 2021-10-31 | Outpatient (CLI) | payer MEDICAID ==
[~2021-10-31] MED LIST changes: +ACET-93 PO
--- NOTE | 2021-10-31 13:05 | Diagnostic Imaging Report ---
INDICATION: Left upper quadrant pain x 1 week. COMPARISON: 11/19/2019. DISCUSSION: Supine and upright views of the abdomen were obtained. The lung bases are well-aerated. Normal heart size. No constipation or obstruction identified. No pneumatosis or pneumoperitoneum. No pathologic calcification. IMPRESSION: Unremarkable bowel gas pattern. Dictated by: Dictated on workstation # [id number]
== END ==
LOC: RAD 11:33
PROVIDERS: ATTEND Nurse Practitioner Community Health
DX: R10.12 Left upper quadrant pain (principal); R19.7 Diarrhea, unspecified
CPT/HCPCS: 74019

== ENCOUNTER 2022-08-19 19:52 | Emergency (ER) | payer MEDICAID ==
[~2022-08-19] VITALS: Ht 158 cm; Wt 90.0 kg
[2022-08-19 20:27] LABS: BILIRUBIN,URINE NEGATIVE (NEGATIVE); CLARITY,URINE CLEAR; COLOR,URINE YELLOW; GLUCOSE, URINE (UA) NEGATIVE (NEGATIVE); KETONES,URINE NEGATIVE (NEGATIVE); LEUKOCYTE ESTERASE ,URINE NEGATIVE (NEGATIVE); NITRITE,URINE NEGATIVE (NEGATIVE); PROTEIN,URINE NEGATIVE (NEGATIVE)
[2022-08-19] MEDS ORDERED: KETOROLAC 30 MG/ML VIAL IVP STA (20:33)
[2022-08-19 20:38] LABS: BACTERIA,URINE TRACE /HPF; RBC,URINE RARE /HPF; WBC,URINE RARE /HPF
[2022-08-19] MEDS ORDERED: NS IV 1000 ML 1,000 ML IV SCH (20:45)
[2022-08-19 21:04] LABS: BASOPHILS % (AUTO) 0 % (0-10); EOSINOPHILS # (AUTO) 0.3 10^3/uL (0.0-0.3); EOSINOPHILS % (AUTO) 3 % (0-10); HEMATOCRIT 43 % (35-52); HEMOGLOBIN 14.3 g/dL (11.5-16.0); LYMPHOCYTES # (AUTO) 1.9 10^3/uL (1.0-4.0); LYMPHOCYTES % (AUTO) 24 % (12-44); MEAN CORPUSCULAR HEMOGLOBIN 28 pg (25-34); MEAN CORPUSCULAR HGB CONC 33 g/dL (32-36); MEAN CORPUSCULAR VOLUME 85 fL (80-99); MEAN PLATELET VOLUME 8.6 fL (9.0-12.2); MONOCYTES % (AUTO) 13 % (0-12); NEUTROPHILS # (AUTO) 4.5 10^3/uL (1.8-7.8); NEUTROPHILS % (AUTO) 58 % (42-75); PLATELET COUNT 248 10^3/uL (130-400); WHITE BLOOD COUNT 7.7 10^3/uL (4.3-11.0)
[2022-08-19 21:22] LABS: ALBUMIN 4.3 GM/DL (3.2-4.5); POTASSIUM 3.6 MMOL/L (3.6-5.0)
[2022-08-19 21:23] LABS: CALCIUM 9.2 MG/DL (8.5-10.1)
[2022-08-19 21:25] LABS: TOTAL PROTEIN 7.3 GM/DL (6.4-8.2)
[2022-08-19 21:26] LABS: BILIRUBIN,TOTAL 0.3 MG/DL (0.1-1.0)
[2022-08-19 21:28] LABS: CREATININE SERUM 0.92 MG/DL (0.60-1.30)
--- NOTE | 2022-08-19 21:35 | ED GU-Female ---
General Chief Complaint: - Reproductive Stated Complaint: KIDNEY INFECTION, SORE THROAT, SPIT UP BLOOD Nursing Triage Note: c/o bilateral flank pain, painful urination, sore throat x4 days. Source: patient Exam Limitations: no limitations History of Present Illness Date Seen by Provider: Aug 19, 2022 Time Seen by Provider: 19:57 Initial Comments 26-year-old female presents with bilateral kidney pain starting 4 days ago. States she had a kidney infection 1 month ago and thinks she has had another kidney infection now. States pain is mostly in the left flank and radiates around and towards the bellybutton. Denies dysuria, denies hematuria. She also reports sore throat for the last 2 days and spitting up small amount of blood. States her throat hurts all the time but is worse with swallowing. Denies any known sick contacts. Reports feeling fevers with chills, states 1 episode of vomiting, reports cough, headache, shortness of air, and multiple episodes of diarrhea. Denies chest pain. Patient's 1 year old daughter is currently in the ER with reports of fever and diarrhea. Allergies and Home Medications Allergies Uncoded Allergies: Pencillin (Allergy, Mild, rash, 02/12/19) rash as a child Patient Home Medication List Home Medication List Reviewed: Yes No Active Prescriptions or Reported Meds Review of Systems Review of Systems Constitutional: see HPI Past Vsxnthc-Pxsuww-Lnrxaz Hx Patient Social History Tobacco Use?: No Substance use?: No Alcohol Use?: Yes Alcohol Frequency: Once in a while Pt feels they are or have been: No Immunizations Up To Date Tetanus Booster (TDap): Unknown First/Initial COVID19 Vaccinat: na Seasonal Allergies Seasonal Allergies: No Past Medical History Surgery/Hospitalization HX: knee, shoulder sx, uti Surgeries: Yes Respiratory: No Cardiac: No Neurological: No [employer]NA[employer] History: IUD Genitourinary: Yes ("2-3 months ago") Kidney Infection Gastrointestinal: No Musculoskeletal: No Endocrine: No HEENT: No Cancer: No Psychosocial: No Integumentary: No Blood Disorders: No Adverse Reaction/Blood Tranf: No Physical Exam Vital Signs Vital Signs - First Documented 08/19/22 19:56 Temp 37.4 Pulse 91 Resp 18 B/P (MAP) 137/103 (114) Pulse Ox 97 O2 Delivery Room Air Capillary Refill : Less Than 3 Seconds Height, Weight, BMI Height: 5'2.00" Weight: 180lbs. 0.0oz. 81.149664ht; 36.00 BMI Method: General Appearance: WD/WN, no apparent distress Cardiovascular: regular rate, rhythm, no edema, no gallop, no JVD, no murmur Respiratory: lungs clear, normal breath sounds, no respiratory distress, no accessory muscle use Gastrointestinal: normal bowel sounds, soft, tenderness Back: CVA tenderness (R), CVA tenderness (L) Extremities: normal range of motion, normal inspection Neurologic/Psychiatric: alert, normal mood/affect, oriented x 3 Skin: normal color, warm/dry Progress/Results/Core Measures Suspected Sepsis SIRS Temperature: Pulse: 91 Respiratory Rate: 18 Laboratory Tests 08/19/22 20:39: White Blood Count 7.7 Blood Pressure 137 /103 Mean: 114 Laboratory Tests 08/19/22 20:39: Creatinine 0.92, Platelet Count 248, Total Bilirubin 0.3 Results/Orders Lab Results Laboratory Tests Test 08/19/22 20:10 08/19/22 20:39 Range/Units Urine Color YELLOW Urine Clarity CLEAR Urine pH 6.0 5-9 Urine Specific [place] 1.010 L 1.016-1.022 Urine Protein NEGATIVE NEGATIVE Urine Glucose (UA) NEGATIVE NEGATIVE Urine Ketones NEGATIVE NEGATIVE Urine Nitrite NEGATIVE NEGATIVE Urine Bilirubin NEGATIVE NEGATIVE Urine Urobilinogen 0.2 < = 1.0 MG/DL Urine Leukocyte Esterase NEGATIVE NEGATIVE Urine RBC (Auto) TRACE-I H NEGATIVE Urine RBC RARE /HPF Urine WBC RARE /HPF Urine Squamous Epithelial Cells 5-10 /HPF Urine Crystals NONE /LPF Urine Bacteria TRACE /HPF Urine Casts NONE /LPF Urine Mucus NEGATIVE /LPF Urine Culture Indicated NO White Blood Count 7.7 4.3-11.0 10^3/uL Red Blood Count 5.08 3.80-5.11 10^6/uL Hemoglobin 14.3 11.5-16.0 g/dL Hematocrit 43 35-52 % Mean Corpuscular Volume 85 80-99 fL Mean Corpuscular Hemoglobin 28 25-34 pg Mean Corpuscular Hemoglobin Concent 33 32-36 g/dL Red Cell Distribution Width 13.3 10.0-14.5 % Platelet Count 248 130-400 10^3/uL Mean Platelet Volume 8.6 L 9.0-12.2 fL Immature Granulocyte % (Auto) 0 % Neutrophils (%) (Auto) 58 42-75 % Lymphocytes (%) (Auto) 24 12-44 % Monocytes (%) (Auto) 13 H 0-12 % Eosinophils (%) (Auto) 3 0-10 % Basophils (%) (Auto) 0 0-10 % Neutrophils # (Auto) 4.5 1.8-7.8 10^3/uL Lymphocytes # (Auto) 1.9 1.0-4.0 10^3/uL Monocytes # (Auto) 1.0 0.0-1.0 10^3/uL Eosinophils # (Auto) 0.3 0.0-0.3 10^3/uL Basophils # (Auto) 0.0 0.0-0.1 10^3/uL Immature Granulocyte # (Auto) 0.0 0.0-0.1 10^3/uL Sodium Level 137 135-145 MMOL/L Potassium Level 3.6 3.6-5.0 MMOL/L Chloride Level 108 H 98-107 MMOL/L Carbon Dioxide Level 19 L 21-32 MMOL/L Anion Gap 10 5-14 MMOL/L Blood Urea Nitrogen 9 7-18 MG/DL Creatinine 0.92 0.60-1.30 MG/DL Estimat Glomerular Filtration Rate 89 BUN/Creatinine Ratio 10 Glucose Level 86 70-105 MG/DL Calcium Level 9.2 8.5-10.1 MG/DL Corrected Calcium 9.0 8.5-10.1 MG/DL Total Bilirubin 0.3 0.1-1.0 MG/DL Aspartate Amino Transf (AST/SGOT) 19 5-34 U/L Alanine Aminotransferase (ALT/SGPT) 26 0-55 U/L Alkaline Phosphatase 81 40-136 U/L Total Protein 7.3 6.4-8.2 GM/DL Albumin 4.3 3.2-4.5 GM/DL Amylase Level 38 25-125 U/L Lipase 20 8-78 U/L Influenza Type A (RT-PCR) Not Detected Not Detecte Influenza Type B (RT-PCR) Not Detected Not Detecte SARS-CoV-2 RNA (RT-PCR) Detected H Not Detecte Group A Streptococcus Screen NEGATIVE NEGATIVE Micro Results Microbiology 08/19/22 Throat Culture - Final, Complete No Beta Strep isolated My Orders Orders - TRISTEN,ANANDA R INTELLIGENCE SUPPORT OFFICER Ua Culture If Indicated (08/19/22 19:56) Urine Bedside (08/19/22 19:56) Comprehensive Metabolic Panel (08/19/22 20:33) Lipase (08/19/22 20:33) Amylase (08/19/22 20:33) Cbc With Automated Diff (08/19/22 20:33) Ct Abd/Pelvis Wo(Kidney Stone) (08/19/22 20:33) Ed Iv/Invasive Line Start (08/19/22 20:33) Ed Iv/Invasive Line Start (08/19/22 20:33) Ns Iv 1000 Ml (Sodium Chloride 0.9%) (08/19/22 20:45) Ketorolac Injection (Toradol Injection) (08/19/22 20:33) Rapid Strep A Screen (08/19/22 20:33) Covid 19 Inhouse Test (08/19/22 20:33) Influenza A And B By Pcr (08/19/22 20:33) Vital Signs/I&O Capillary Refill : Less Than 3 Seconds Blood Pressure Mean: 114 Progress Note #1: Time: 20:20 Progress Note Patient seen and evaluated, sitting on bed, no acute distress. Based on exam and symptoms, differential diagnosis includes but is not limited to COVID/flu, strep throat, pyelonephritis, kidney stone, UTI, musculoskeletal pain. Work-up initiated including CBC, CMP, COVID/flu, strep screen UA, UCG, amylase, lipase, CT abdomen pelvis. IV fluids and Toradol ordered. Progress Note #2: Time: 21:45 Progress Note Labs and CT reviewed. CBC normal, CMP slightly low CO2 19, slightly elevated chloride at 108. Amylase and lipase normal. UA shows trace amount of RBCs, no infection noted. Patient is positive for COVID, strep and flu negative. CT reveals no acute findings, no kidney stones noted. Discussed results with patient. Blood in urine might be from a stone that has already passed. Instructed patient to follow-up with PCP and have a repeat urinalysis to check for RBCs in 2 to 4 weeks. Patient given isolation instructions for COVID. Give n discharge instructions and return precautions. Diagnostic Imaging Diagonstic Imaging: CT Plain Films/CT/US/NM/MRI: abdomen Comments [facility] [place], [place] NAME: GABRIELLA [facility] REC#: [id number] PT STATUS: REG ER : 1995 PHYSICIAN: ANANDA RAMON APRN ADMIT DATE: 08/19/22/ER Draft Date of Exam:08/19/22 CT ABD/PELVIS WO(KIDNEY STONE) INDICATION: Bilateral flank pain, painful urination. TECHNIQUE: Multiple contiguous axial images were obtained through the abdomen and pelvis without the use of intravenous contrast. Auto Exposure Controls were utilized during the CT exam to meet ALARA standards for radiation dose reduction. COMPARISON: There is no prior study for comparison. FINDINGS: The visualized portions of the lung bases are clear. There air no pleural fluid collection. There is no free intraperitoneal air. Bony structures are unremarkable. The liver shows diffuse low-density change compatible with fatty infiltration. Gallbladder appears unremarkable. Spleen, adrenals and pancreas appear normal. Kidneys, bilaterally, show no radiopaque stone or hydronephrosis. There is no ureteral stone. There is no retroperitoneal mass or adenopathy. There is no ascites or abnormal fluid collection. Visualized bowel loops show no overt obstruction. The uterus and adnexa appear normal. There is no periappendiceal territory change. IMPRESSION: No acute abnormality visualized in the abdomen or pelvis. Dictated on workstation # [id number] Dict: 08/19/222126 Trans: 08/19/222134 [facility] [id number] Interpreted by: LEONEL HERNANDEZ MD Electronically signed by: Departure Impression Primary Impression: COVID Disposition: HOME, SELF-CARE Condition: Stable Departure-Patient Inst. Decision time for Depature: 21:53 Referrals: NO,LOCAL PHYSICIAN (PCP/Family) Primary Care Physician Patient Instructions: COVID-19 (DC) Add. Discharge Instructions: Drink plenty of noncaffeinated low sugar beverages. Take Tylenol and ibuprofen as needed for pain and fever. You need to remain isolated for at least 5 days since the beginning of your symptoms. You may, come off of isolation when you begin to feel better and you are fever free without any fever reducing medications for 24 hours. Follow-up with your primary care provider. Your urine showed small amount of blood in it, you need to have a repeat urinalysis done by your primary care provider. Return for any new, concerning, or worsening symptoms, return for uncontrolled fever that has been treated with Tylenol and ibuprofen, shortness of breath, chest pain. All discharge instructions reviewed with patient and/or family. Voiced understanding. Scripts No Active Prescriptions or Reported Meds Work/School Note: Work Release Form Date Seen in the Emergency Department: Aug 19, 2022 Return to Work: Aug 24, 2022 Restrictions: Return-No Fever (24hrs) ANANDA RAMON APRN Aug 19, 2022 21:35
[2022-08-19 22:00] VITALS: BP 132/89
== END 2022-08-19 22:05 | disposition home or self-care (01) ==
LOC: EDUNIT# 19:52 → ER 19:54
DX: U07.1 COVID-19 (principal); E87.8 Other disorders of electrolyte and fluid balance, not elsewhere classified; R79.81 Abnormal blood-gas level; Z28.310 Unvaccinated for COVID-19
CPT/HCPCS: 36415; 74176; 80053; 81000; 82150; 83690; 84703; 85025; 87430; 87636

== ENCOUNTER → 2022-11-02 | Outpatient (CLI) | payer MEDICAID ==
--- NOTE | 2022-11-02 11:18 | Diagnostic Imaging Report ---
INDICATION: Fell 15 years ago. Continued left hip pain but worsening recently. EXAMINATION: Left lower extremity MRI without contrast on 11/02/2022. FINDINGS: There is no acute osseous abnormality. No fractures or dislocations. The hips are bilaterally symmetric in appearance. The hamstrings tendon origins are intact. The iliopsoas tendons and musculature are unremarkable as visualized. The tendinous insertion at the greater trochanter is intact. The labrum is poorly evaluated on this noncontrast examination. No displaced tear is appreciated. The visualized intrapelvic structures demonstrate no acute abnormality. Multiple cystic changes are noted in the right ovary, consistent with physiologic findings. IMPRESSION: Unremarkable MRI of the left hip. Dictated by: Dictated on workstation # [id number]
== END ==
LOC: RAD 08:50
PROVIDERS: ATTEND Nurse Practitioner Family
DX: M25.552 Pain in left hip (principal); W19.XXXA Unspecified fall, initial encounter
CPT/HCPCS: 73721

== ENCOUNTER 2022-12-28 11:28 | Outpatient (RCR) | payer MEDICAID | END 2022-12-29 | disposition home or self-care (01) | PROVIDERS: ATTEND Family Medicine | DX: M54.50 Low back pain, unspecified (principal); M25.552 Pain in left hip; G89.29 Other chronic pain ==

== ENCOUNTER 2023-01-11 11:01 | Outpatient (RCR) | payer MEDICAID | END 2023-01-28 | disposition home or self-care (01) | PROVIDERS: ATTEND Family Medicine | DX: M25.552 Pain in left hip (principal); M54.50 Low back pain, unspecified; G89.29 Other chronic pain ==

== ENCOUNTER 2023-02-25 08:46 | Outpatient (RCR) | payer MEDICAID | END 2023-02-28 | disposition home or self-care (01) | PROVIDERS: ATTEND Orthopaedic Surgery | DX: M75.81 Other shoulder lesions, right shoulder (principal); M75.82 Other shoulder lesions, left shoulder ==

== ENCOUNTER 2023-03-22 10:45 | Outpatient (RCR) | payer MEDICAID | END 2023-03-29 10:43 | disposition home or self-care (01) | PROVIDERS: ATTEND Orthopaedic Surgery | DX: M75.81 Other shoulder lesions, right shoulder (principal); M75.82 Other shoulder lesions, left shoulder; M77.8 Other enthesopathies, not elsewhere classified ==

== ENCOUNTER 2023-05-27 11:15 | Outpatient (RCR) | payer MEDICAID | END 2023-05-31 | disposition home or self-care (01) | PROVIDERS: ATTEND Orthopaedic Surgery Sports Medicine | DX: S73.192D Other sprain of left hip, subsequent encounter (principal); M25.852 Other specified joint disorders, left hip; X58.XXXD Exposure to other specified factors, subsequent encounter ==

== ENCOUNTER 2023-06-21 11:02 | Outpatient (RCR) | payer MEDICAID | END 2023-06-30 | disposition home or self-care (01) | PROVIDERS: ATTEND Orthopaedic Surgery Sports Medicine | DX: S73.192D Other sprain of left hip, subsequent encounter (principal); M25.852 Other specified joint disorders, left hip; X58.XXXD Exposure to other specified factors, subsequent encounter ==